=== PATIENT | female | born 1960 | race Caucasian/White ===

== ENCOUNTER → 2017-08-07 10:27 | Outpatient (CLI) | payer BC, SELFPAY ==
[2017-08-07 11:24] LABS: ALB/GLOB Ratio 1.3 RATIO (0.9-2.4); AST(SGOT) 22 U/L (15-37); Alanine Aminotransfer ALT/SGPT 37 U/L (13-56); Albumin, Serum 3.9 g/dL (3.2-5.0); Alkaline Phosphatase 78 U/L (45-117); Anion Gap 5 (5-15); BUN 13 mg/dL (7-18); BUN/Creat Ratio 14.3 RATIO (10-20); Calcium,Total 8.7 mg/dL (8.5-10.1); Chloride 108 mmol/L (98-107); Creatinine, Serum 0.91 mg/dL (0.55-1.02); EST Glomerular Filtration Rate 67 mL/min (>60); Est Glom Filt Rate - Afr Amer 81 mL/min (>60); Globulin 3.1 g/dL (2.2-4.2); Glucose 95 mg/dL (74-106); Potassium 4.2 mmol/L (3.5-5.1); Sodium Level 143 mmol/L (136-145); Thyroid Stim Hormone (TSH) 0.95 uIU/mL (0.358-3.74)
[2017-08-07 11:42] LABS: Vitamin D,25 Hydroxy 38.8 ng/mL (29.95-100.01)
== END ==
PROVIDERS: Family Provider Family Medicine; PCP Family Medicine; Visit Provider Internal Medicine Endocrinology, Diabetes & Metabolism
DX: E03.8 Other specified hypothyroidism (principal); E55.9 Vitamin D deficiency, unspecified
CPT/HCPCS: 36415; 80053; 82306; 84443

== ENCOUNTER → 2018-06-18 06:59 | Outpatient (CLI) | payer BC, SELFPAY ==
[2018-06-18 08:49] LABS: ALB/GLOB Ratio 1.2 RATIO (0.9-2.4); AST(SGOT) 18 U/L (15-37); Alanine Aminotransfer ALT/SGPT 28 U/L (13-56); Albumin, Serum 3.8 g/dL (3.2-5.0); Alkaline Phosphatase 83 U/L (45-117); Anion Gap 8 (5-15); BUN 15 mg/dL (7-18); BUN/Creat Ratio 16.1 RATIO (10-20); Calcium,Total 8.9 mg/dL (8.5-10.1); Chloride 108 mmol/L (98-107); Creatinine, Serum 0.93 mg/dL (0.55-1.02); EST Glomerular Filtration Rate 65 mL/min (>60); Est Glom Filt Rate - Afr Amer 79 mL/min (>60); Globulin 3.2 g/dL (2.2-4.2); Glucose 96 mg/dL (74-106); Potassium 3.9 mmol/L (3.5-5.1); Sodium Level 142 mmol/L (136-145); Thyroid Stim Hormone (TSH) 1.02 uIU/mL (0.358-3.74)
== END ==
PROVIDERS: Family Provider Family Medicine; PCP Family Medicine; Referring Provider Internal Medicine Endocrinology, Diabetes & Metabolism; Visit Provider Internal Medicine Endocrinology, Diabetes & Metabolism
DX: E03.8 Other specified hypothyroidism (principal); E55.9 Vitamin D deficiency, unspecified
CPT/HCPCS: 36415; 80053; 82306; 84443

== ENCOUNTER → 2018-10-28 06:52 | Outpatient (CLI) | payer BC, SELFPAY ==
[2018-10-28 08:28] LABS: T4 Free Direct 1.31 ng/dL (0.76-1.46); Thyroid Stim Hormone (TSH) 0.59 uIU/mL (0.358-3.74)
== END ==
PROVIDERS: Family Provider Family Medicine; PCP Family Medicine
DX: E03.9 Hypothyroidism, unspecified (principal)
CPT/HCPCS: 36415; 84439; 84443

== ENCOUNTER → 2019-12-20 | Outpatient (CLI) | payer BC, SELFPAY | END | disposition home or self-care (01) | PROVIDERS: PCP Family Medicine; Visit Provider Family Medicine Hospice and Palliative Medicine | DX: Z11.59 Encounter for screening for other viral diseases (principal) | CPT/HCPCS: 87635; 94799; U0003 ==

== ENCOUNTER → 2020-02-25 09:15 | Outpatient (CLI) | payer BC, SELFPAY ==
[2020-02-25 10:52] LABS: T4 Free Direct 1.68 ng/dL (0.76-1.46); Thyroid Stim Hormone (TSH) 0.05 uIU/mL (0.358-3.74)
== END ==
PROVIDERS: PCP Family Medicine; Referring Provider Family Medicine; Visit Provider Family Medicine
DX: E03.9 Hypothyroidism, unspecified (principal)
CPT/HCPCS: 36415; 84439; 84443

== ENCOUNTER → 2020-06-02 07:08 | Outpatient (CLI) | payer BC, SELFPAY ==
[2020-06-02 08:09] LABS: ALB/GLOB Ratio 1.3 RATIO (0.9-2.4); AST(SGOT) 17 U/L (15-37); Alanine Aminotransfer ALT/SGPT 32 U/L (13-56); Albumin, Serum 3.8 g/dL (3.2-5.0); Alkaline Phosphatase 77 U/L (45-117); Anion Gap 5 (5-15); BUN 16 mg/dL (7-18); Chloride 106 mmol/L (98-107); Cholesterol 166 mg/dL (200); Creatinine, Serum 0.94 mg/dL (0.55-1.02); EST Glomerular Filtration Rate 64 mL/min (>60); Est Glom Filt Rate - Afr Amer 78 mL/min (>60); Glucose 101 mg/dL (74-106); High Density Lipoprotein 50 mg/dL; Protein, Total 6.8 g/dL (6.4-8.2); Sodium Level 139 mmol/L (136-145); Triglycerides 92 mg/dL; Very Low Density Lipoprotein 18 mg/dL (5-40)
== END ==
PROVIDERS: PCP Family Medicine; Referring Provider Family Medicine; Visit Provider Family Medicine
DX: E03.9 Hypothyroidism, unspecified (principal); E78.2 Mixed hyperlipidemia; G43.909 Migraine, unspecified, not intractable, without status migrainosus
CPT/HCPCS: 36415; 80053; 80061; 84443

== ENCOUNTER → 2020-12-05 06:30 | Outpatient (CLI) | payer BC, SELFPAY ==
[2020-12-05 08:25] LABS: ALB/GLOB Ratio 1.4 RATIO (0.9-2.4); AST(SGOT) 19 U/L (15-37); Alanine Aminotransfer ALT/SGPT 29 U/L (13-56); Alkaline Phosphatase 73 U/L (45-117); Anion Gap 4 (5-15); BUN 16 mg/dL (7-18); BUN/Creat Ratio 16.5 RATIO (10-20); Calcium,Total 9.1 mg/dL (8.5-10.1); Chloride 108 mmol/L (98-107); Cholesterol 174 mg/dL (200); Creatinine, Serum 0.97 mg/dL (0.55-1.02); EST Glomerular Filtration Rate 62 mL/min (>60); Est Glom Filt Rate - Afr Amer 75 mL/min (>60); Globulin 2.8 g/dL (2.2-4.2); Glucose 92 mg/dL (74-106); High Density Lipoprotein 54 mg/dL; Potassium 3.7 mmol/L (3.5-5.1); Protein, Total 6.8 g/dL (6.4-8.2); Sodium Level 139 mmol/L (136-145); T4 Free Direct 1.21 ng/dL (0.76-1.46); Thyroid Stim Hormone (TSH) 1.45 uIU/mL (0.358-3.74); Triglycerides 107 mg/dL; Very Low Density Lipoprotein 21 mg/dL (5-40)
== END ==
PROVIDERS: PCP Family Medicine; Referring Provider Family Medicine; Visit Provider Family Medicine
DX: E03.9 Hypothyroidism, unspecified (principal); G43.909 Migraine, unspecified, not intractable, without status migrainosus; E78.2 Mixed hyperlipidemia
CPT/HCPCS: 36415; 80053; 80061; 84439; 84443

== ENCOUNTER → 2025-01-05 | Outpatient (CLI) | payer MEDICARE, OTHER, SELFPAY ==
--- OUTSIDE RECORDS SUMMARY | 2025-01-05 08:46 | XMS RPT_ITS | CCD ---
Author Organization [facility] Inform ion Partnership [facility] Care Team Providers Care Guest Services Agent Name Role Phone Jai GABRIEL, Haile Castillo Primary Care Provider 1( [phone] HAILE COCHRAN MD Primary Care Physician Haile Cochran MD Primary Care Provider Haile Cochran MD Primary Care Provider HAILE COCHRAN MD Attending Unavailable HAILE COCHRAN MD Primary Care Unavailable SHUBHAM OBANDO MD Attending Unavail able HAILE COCHRAN MD Primary Care Unavailable HAILE COCHRAN Primary Care Unavailable MIEKY EVERETT Attending Unavailable Haile Cochran MD Primary Care Provider KRYSTYNA LOMBARDI JR Attending Unavaila [place] Referring Unavailable HAILE COCHRAN Primary Care Unavailable DEANNA JOHNS Referring Unavailable DEANNA JOHNS Attending Unavailable HAILE COCHRAN Primary Care Unavailable DEANNA JOHNS Referring Unavailable Haile Cochran Attending Unavailable Haile Cochran Primary [facility] [place] Unavailable Allergies Allergy Classification Reported Allergen(s) Allergy Type Date of Onset Reaction(s) Facility (15 sources) Acetaminophen / HYDROcodone; Translations: [HYDROCODONE-ACETA MINOPHEN] Drug Allergy 4 GI Upset [facility] (19 sources) Codeine; Translations: [codeine] Drug Allergy 6 Intolerance, Vomitus (substance) [facility] Work Phone: Medications Current Medications Medication Drug Class(es) Dates Sig (Normalized) Sig (Original) Ascorbic Acid (3 sources) Vitamin C Start: 02-29-2020 Vitamin C qDay, 0 Refill(s) Start Date: 02/29/20 Status: Ordered aspirin 81 mg delayed release oral tablet (16 sources) Platelet Aggregation Inhibitor, Nonsteroidal Anti-inflammatory Drug Start: 12-12-2020 aspirin 81 mg oral delayed release tablet Dose : 81 mg = 1 tab(s), Oral, qDay, # 30 tab(s), 0 Refill(s) Start Date: 12/12/20 Status: Ordered Comment on above: Take 81 mg by mouth once daily. calcium carbonate 750 mg chewable tablet (13 sources) Start: 05-02-2010 calcium Carbonate 300 mg, 750mg, (TUMS) 300 mg (750 mg) chewable tablet take two tablets three times daily as needed 0 05/02/2010 Active Comment on above: take two tablets thr ee times daily as needed Co-Q10 200 mg oral capsule (3 sources) Start: 06-13-2020 Co-Q10 200 mg oral capsule Dose : 200 mg = 1 cap(s), Oral, Daily, 0 Refill(s) Start Date: 06/13/20 Status: Ordered ERGOCALCIFEROL, VITAMIN D2, (VITAMIN D ORAL) (13 sources) ERGOCALCIFEROL, VITAMIN D2, (VITAMIN D ORAL) Take by mouth. Active ERGOCALCIFEROL, VITAMIN D2, (VITAMIN D ORAL) Take by mouth. 0 Active Comment on above: Take by mouth. famotidine 20 mg oral tablet (4 sources) Histamine-2 Receptor Antagonist Start: 12-12-2020 End: 10-04-2021 famotidine 20 mg oral tablet Dose : 20 mg = 1 tab(s), Oral, qDay, # 30 tab(s), 0 Refill(s) Start Date: 12/12/20 Status: Ordered Comment on above: Take 20 mg by mouth once daily. levothyroxine sodium 0.125 mg oral tablet (16 sources) l-Thyroxine Start: 06-14-2021 End: 11-30-2023 levothyroxine 125 mcg (0.125 mg) oral tablet Dose : 125 mcg = 1 tab(s), Oral, qDay, # 90 tab(s), 3 Refill(s), Pharmacy: [facility] ([facility] 166.3, cm, 12/05/22 7:27:00 EDT, Height, kg, 12/05/22 7:27:00 EDT, Dosing Weight Start Date: 12/05/22 Stop Date: 11/30/23 Status: Ordered levothyroxine 17 5 mcg tablet Take 125 mcg by mouth daily before breakfast. Active Comment on above: Take 125 mcg by mout h daily before breakfast. Multivitamin preparation (3 sources) Start: 0 take 1 tablet by mouth once daily Multivitamin Dose = 1 tab(s), Oral, Daily, 0 Refill(s) Start Date: 02/29/20 Status: Ordered MULTIVITAMIN TAB (13 sources) Start: 6 MULTIVITAMIN TAB Take one(1) tablet daily. 0 09/24/2005 Active Comment on above: Take one(1) tablet d aily. Hamilton-3 Fatty Acids-Vitamin E 1,000 mg cap (8 sources) Hamilton-3 Fatty Acids-Vitamin E 1,000 mg cap Take 1 capsule by mouth. Active Hamilton-3 Fatty Ac ids-Vitamin E 1,000 mg cap Take 1 capsule by mouth. 0 Active Comment on above: Take 1 capsule by mo uth. perflutren lipid microspheres 1.3 mL in NaCl (PF) 0.9% 10 mL injection (DEFINITY) (3 sources) Start: 3 End: 4 perflutren lipid microspheres 1.3 mL in NaCl (PF) 0.9% 10 mL injection (DEFINITY) simvastatin 40 mg oral tablet (16 sources) HMG-CoA Reductase Inhibitor Start: 1 take 1 tablet by mouth once daily in the evening simvastatin (ZOCOR) 40 mg tablet TAKE 1 TABLET BY MOUTH EVERY DAY IN THE EVENING 30 tablet 11 10/12/2020 Active Comment on above: TAKE 1 TABLET BY BETHEL EVERY DAY IN THE EVENING 125 ml sodium chloride 9 mg/ml prefilled syringe (3 sources) Start: 3 End: 4 sodium chloride 0.9 % (flush) 10 mL (BD POSIFLUSH) ubidecarenone 100 mg oral capsule (13 sources) coenzyme Q10 (COENZYME Q-10) 100 mg cap capsule Take 100 mg by mouth once daily. Active Comment on above: Take 100 mg by mouth once daily. Vitamin D3 (2 sources) Start: 1 take 1 dose by mouth once daily Vitamin D3 Dose : 1,000 Int unit =, Oral, Daily, 0 Refill(s) Start Date: 06/13/20 Status: Ordered vitamin e 268 mg oral capsule (13 sources) take 1 capsule by mouth once daily alpha tocopheryl acetate (VITAMIN E) 400 unit capsule Take 400 Units by mouth once daily. Active take 1 capsule by mouth once lisa ly alpha tocopheryl acetate (VITAMIN E) 400 unit capsule Take 400 Units by mouth once daily. 0 Active Comment on above: Take 400 Units by [facility] once daily. Completed/Discontinued Medications Medication Drug Class(es) Dates Sig (Normalized) Sig (Original) nebivolol 2.5 mg oral tablet (5 sources) Start: 06-06-2021 take 1 tablet by mouth once daily nebivolol (BYSTOLIC) 2.5 mg tablet Take 1 tablet by mouth once daily. 30 tablet 3 06/06/2021 Active Comment on above: Take 1 tablet by [facility] once daily. Hamilton-3 Fatty Acids-Vitamin E (FISH OIL) 1,000 mg cap (5 sources) Hamilton-3 Fatty Acids-Vitamin E (FISH OIL) 1,000 mg cap Take 1 capsule by mouth. 0 Active Comment on above: Take 1 capsule by [facility]. rizatriptan 10 mg oral tablet (1 source) Serotonin-1b and Serotonin-1d Receptor Agonist Start: 10-13-2005 End: 10-04-2021 MAXALT 10 MG TAB 1 tab prn 0 10/13/2005 10/04/2021 Discontinued Comment on above: 1 tab prn Problems Active Problems Problem Classification Problem Date Documented Da te Episodic/Chronic Acute myocardial infarction (9 sources) Acute myocardial infarction; Translations: [Acute myocardial infarction, unspecified] Onset: 10-23-2010 09-30-2022 Chronic Coronary atherosclerosis and other heart disease (20 sources) Coronary atherosclerosis; Translations: [Atherosclerotic heart disease of [place] coronary artery with unspecified angina pectoris] Onset: 09-07-2019 Resolved: 09-30-2022 Chronic Disorders of lipid metabolism (20 sources) Mixed hyperlipidemia; Translations: [Mixed hyperlipidemia] Onset: 10-02-2021 Chronic Essential hypertension (5 sources) Benign essential hypertension; Translations: [Essential (primary) hypertension] Onset: 11-10-2011 Chronic Headache; including migraine (20 sources) Migraine with aura; Translations: [Migraine with aura, not intractable, without status migrainosus] Onset: 05-25-1999 11-10-2011 Chronic Heart valve disorders (14 sources) Heart murmur; Translations: [Cardiac murmur, unspecified] Episodic Immunizations and screening for infectious disease (12 sources) Patient encounter status; Translations: [Encounter for screening for human papillomavirus (HPV)] Episodic Menopausal disorders (3 sources) Disorder associated with menstruation AND/OR menopause; Translations: [Unspecified menopausal and perimenopausal disorder] Onset: 12-09-2024 12-09-2024 Chronic Nonmalignant breast conditions (2 sources) Breast finding ; Translations: [Dense breast tissue] 12-03-2023 Episodic Nonspecific chest pain (2 sources) Chest pain; Translations: [Other chest pain] Onset: 05-15-2023 Episodic Open wounds of extremities (1 source) Laceration without foreign body of unspecified finger without damage to nail, initial encounter; Translations: [Laceration without foreign body of unspecified finger without damage to nail, initial encounter] Onset: 02-02-2024 Episodic Other screening for suspected conditions (not mental disorders or infectious disease) (2 sources) Encounter for screening mammogram for malignant neoplasm of breast; Translations: [Encounter for screening for osteoporosis] Onset: 12-09-2024 Episodic Thyroid disorders (20 sources) Non-toxic uninodular goiter; Translations: [Nontoxic single thyroid nodule] Onset: 05-25-1999 03-27-2010 Chronic Unclassified (4 sources) Patient encounter status 12-05-2022 Unclassified (1 source) Dense breast tissue; Translations: [Dense breast tissue] Onset: 12-09-2024 Past or Other Problems Problem Classification Problem Date Documented Date Episodic/Chronic Other non-epithelial cancer of skin (9 sources) History of malignant basal cell neoplasm of skin; Translations: [Personal history of other malignant neoplasm of skin] Onset: 05-25-2012 09-30-2022 Episodic Residual codes; unclassified (14 sources) History of cardiac catheterization; Translations: [Other specified postprocedural states] Onset: 11-08-2010 Episodic Residual codes; unclassified (1 source) Other specified postprocedural states; Translations: [History of left heart catheterization] Onset: 09-05-2019 Episodic Screening and history of mental health and substance abuse codes (20 sources) Ex-smoker; Translations: [Personal history of nicotine dependence] Onset: 09-28-2020 Episodic Results Test Name Value Interpretation Reference Range Facility [facility] 12-09-2024 CNOV Office Visit (OBGYWM ) SADIE VELASCO ([id number]) 1960 F NFR Date Time Provider Department 12/09/24 3:00 PM DEANNA JOHNS OBGYWM During your visit today, we recorded the following information about you: Blood pressure Weight Height 118/66 71.4 kg 1.634 m Deanna Johns APRN.BLUNGER 12/09/2024 3:10 PM Signed 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 Postmenopausal: Yes since age 52 HRT use: No. Last Pap: 12/02/2021 normal HPV: 11/27/2021 negative History of abnormal pap: No Last mammogram: 2024 today History of abnormal mammogram: No Sexually active: Yes OB History Gravida1 Para1 Term0 Preterm0 AB0 Living1 SAB0 IAB0 Ectopic0 Multiple0 Live Births0 Comment: 1 vaginal delivery [employer] History LMP: 01/17/2013, Postmenopausal Age at Menarche: Age at First : Age at Menopause: [employer] History Comments: Sexual Activity: Yes; Male Contraception: Vasectomy PAST MEDICAL HISTORY Diagnosis Date Acute [place] ([place]) 10/2010 Heart murmur History of left heart catheterization 11/08/2010 Patient has atherosclerosis. A long mid LAD about 50% stenosis. RCA and circumflex are noted to be free of disease. Hx of skin cancer, basal cell 2012 Hypothyroidism Migraines Mixed hyperlipidemia Toxic goiter 1999 PAST SURGICAL HISTORY Procedure Laterality Date COLONOSCOPY FLX DX W/COLLJ SPEC WHEN PFRMD 06/20/2013 Colonoscopy EGD 02/16/05 w/ bx PAST SURGICAL HISTORY OF radio active iodine for graves disease PAST SURGICAL HISTORY OF 05/2012 basil cell removal from nose THYROIDECTOMY TOTAL/COMPLETE 04/24/10 [facility] FAMILY HISTORY Problem Relation Age of Onset Hypertension Mother Alzheimer's Disease Mother Mild Alzheimer's Stroke Mother Hypertension Father Heart Failure Maternal Grandfather Heart Paternal Uncle SOCIAL HISTORY Social History Tobacco Use Smoking status: Former Current packs/day: 0.00 Average packs/day: 0.5 packs/day for 3.0 years (1.5 ttl pk-yrs) Types: Cigarettes Start date: 1977 Quit date: 1980 Years since quittin.5 Passive exposure: Never Smokeless tobacco: Never Vaping Use Vaping status: Never Used Substance Use Topics Alcohol use: No Drug use: No REVIEW OF SYSTEMS Abdomen: No abdominal pain, nausea, vomiting, diarrhea, or constipation. No bloating, early satiety, indigestion, or increased flatulence. Bladder: No dysuria, gross hematuria, urinary frequency, urinary urgency, or incontinence Breast: No breast lumps, nipple d/c, overlying skin changes, redness or skin retraction Allergies and current medication updated:Yes SENSITIVE EXAM: The sensitive examination was discussed with the Patient or Patient's Authorized It Infrastructure Specialist. As applicable, any other physician, advance practice provider, medical student, or other health professional student that will be observing or involved in the sensitive examination for educational or training purposes was discussed with the Patient or Authorized It Infrastructure Specialist. The Patient or Authorized It Infrastructure Specialist has agreed to proceed with the sensitive examination. (Sensitive examination includes inspection and/or palpation of the breasts, pelvis, prostate and anorectal regions). EXAM: BP 118/66 Ht 5' 4.331 (1.63m) Wt 157 lb 6.4 oz (71.4kg) LMP 01/17/2013 BMI 26.74 kg/(m2). GENERAL: pleasant, female in no apparent distress HEENT: Normocephalic, atraumatic, mucus membranes moist, and no lesions DERMATOLOGY: Normal, without lesions, non-icteric, and non-hirsute BREAST: soft, non-tender, symmetric, no dominant mass, normal nipple-areolar complex, no lymphadenopathy, and no nipple discharge CHEST: Normal inspiratory effort ABDOMEN: soft, non-tender, and no masses PELVIC: external genitalia normal, normal Bartholin's glands, urethra, [place]'s glands, no vulvar lesions, no cervical lesions, physiologic discharge present, normal appearing perineal body and perianal region BIMANUAL: uterus normal size, shape and consistency, no adnexal masses, and non-tender RECTOVAGINAL: deferred. NEURO: alert and oriented x3,exam grossly non-focal EXTREMITIES: normal ASSESSMENT/PLAN: 1) Health maintenance: Pap/HPV screening no longer needed Mammogram ordered Mammogram up to date Nutrition, exercise and routine health maintenance exams reviewed. Colon cancer screening: declined BMD: ordered 2) Follow up one year or sooner as needed Deanna Johns APRN.CNP Referring Provider: DEANNA JOHNS [[id number]] Allergies As of Date: 12/09/2024 Noted Allergy Reaction HYDROCODONE-ACETAMINO PHEN 06/20/2013 8 - GI Upset CODEINE 09/24/2005 5 - Intolerance Date Reviewed: 12/09/2024 Reviewed by: Deanna Johns APRN.BLUNGER - Fully Assessed Reason for Visit: [facility] [[id number]] Primary Visit Diagnosis:Encounter (more content not included)... Normal [facility] BRIANDA SCREENING W TOMOon 12-09 BRIANDA SCREENING W SHREYA * * *Final Report* * * DATE OF EXAM: Dec 09 2024 2:19PM [facility] [id number] - BRIANDA SCREENING W SHREYA / PROCEDURE REASON: multiple diagnoses * * * * Physician Interpretation * * * * RESULT: [place] [address] #[id number] - BRIANDA SCREENING W SHREYA HISTORY: 64 year-old patient presents for screening. Patient is asymptomatic in both breasts. Patient states no personal history of breast cancer. COMPARISON STUDIES: The present examination has been compared to prior imaging studies dated 11/18/2019 (mammogram), 11/19/2020 (mammogram), 11/21/2021 (mammogram), 11/24/2022 (mammogram) and 11/27/2023 (mammogram). MAMMOGRAM TECHNIQUE: The study was acquired using full field digital technology and interpreted from soft copy. Digital Breast Tomosynthesis (DBT) images were obtained and used to assist in the interpretation of this examination. MAMMOGRAM FINDINGS: There are scattered areas of fibroglandular density. No suspicious masses, calcifications or other abnormalities are seen in either breast. There are no significant interval changes. IMPRESSION: There is no mammographic evidence of malignancy in either breast. Routine screening mammogram is recommended. Annual mammogram will be due in 1 year. BI-RADS Category 1: Negative RISK: Based on the Tyrer-Cuzick (TC) risk assessment model, this patient has a 6.3% lifetime risk of developing breast cancer, meaning they are at average risk for developing breast cancer. However, this is only an estimate based on available history provided on the patient's questionnaire. We encourage all patients to talk with their providers about these results, further recommendations for managing breast health, and appropriate supplemental screening options if the patient has dense breast tissue. Interpreting Radiologist: Delphine Pierre M.D. Electronically signed on: 12/12/2024 Tool Pusher: GALLO Transcribe Date/Time: Dec 09 2024 2:12P Dictated by: DELPHINE PIERRE MD This examination was interpreted and the report reviewed and electronically signed by: DELPHINE PIERRE MD on Dec 12 2024 8:43AM EST [id number] Normal [facility] XR HAND 3+ VIEWS LEFTon 09 XR HAND 3+ VIEWS LEFT XR HAND 3+ VIEWS L EFT AP, lateral and oblique views of the left hand. COMPARISON: None available in PACS. FINDINGS: No acute fracture or dislocation is identified. Joint spaces are preserved. Mineralization is within normal limits. No destructive osseous lesions are identified. There are no soft tissue calcifications. There are no radiopaque foreign bodies. IMPRESSION: 1. No acute osseous abnormality. Normal [facility] MG Breast Screeningon 2023 IMPRESSION: NEGATIVE There is no mammographic evidence of malignancy. A 1 year screening mammogram is recommended. Delphine Pierre M.D. cp/penrad:11/27/2023 07:25:29 Steward/Stewardess Wine(s): Glenna Gonzalez [facility] [place] letter sent: Normal over 40 Mammogram BI-RADS: 1 Negative Multiple national specialty organizations have released breast cancer screening guidelines for women at average risk for developing breast cancer - guidelines that are based on both evidence and opinion, yet differ on when to start and how often to screen for breast cancer. With representation from Breast Imaging, Internal Medicine, Women's Health, Family Medicine, and Medical/Surgical Oncology, the [facility] has carefully reviewed the data and reached the following consensus: 1) All women should engage in shared decision-making with their providers to decide when to start and how often to screen; 2) All women should have the opportunity to start screening mammography at age 40; 3) For women ages 45-55, we recommend annual screening mammograms; 4) For women ages 55 and over, we support both the transition from an annual to a biennial interval if this aligns more with patient's values and preferences, or continuation with annual screening; 5) All women should discuss with their providers when to stop screening mammograms. Tool Pusher: Darlene Transcribe Date/Time: Nov 27 2023 6:55A Dictated by: DELPHINE PIERRE MD This examination was interpreted and the report reviewed and electronically signed by: DELPHINE PIERRE MD on Nov 27 2023 7:25AM [facility] DIVISION OF RADIOLOGY * * *Final Report* * * DATE OF EXAM: Nov 27 2023 7:03AM [facility] 0581 - [facility] SCREENING / PROCEDURE REASON: Encounter for screening mammogram for breast cancer * * * * Physician Interpretation * * * * RESULT: #[id number] - BRIANDA SCREENING BILATERAL DIGITAL SCREENING MAMMOGRAM WITH CAD: 11/27/2023 HISTORY: Encounter For Screening Mammogram For Breast Cancer / Screening Mammogram-Patient reports NO symptoms. /priors available for comparison. RESULT: TECHNIQUE: The study was acquired using full field digital technology and interpreted from soft copy. Current study was also evaluated with a Computer Aided Detection (CAD). Comparison is made to exams dated: 11/24/2022 mammogram, 11/21/2021 mammogram, 11/19/2020 mammogram, and 11/18/2019 mammogram - [facility]. There are scattered areas of fibroglandular density. No significant masses, calcifications, or other findings are seen in either breast. There has been no significant interval change. DIVISION OF RADIOLOGY Provider, [facility] - 11/27/2023 * * *Final Report* * * DATE OF EXAM: Nov 27 2023 7:03AM [facility] 0581 - [facility] SCREENING / PROCEDURE REASON: Encounter for screening mammogram for breast cancer * * * * Physician Interpretation * * * * RESULT: #[id number] - BRIANDA SCREENING BILATERAL DIGITAL SCREENING MAMMOGRAM WITH CAD: 11/27/2023 HISTORY: Encounter For Screening Mammogram For Breast Cancer / Screening Mammogram-Patient reports NO symptoms. /priors available for comparison. RESULT: TECHNIQUE: The study was acquired using full field digital technology and interpreted from soft copy. Current study was also evaluated with a Computer Aided Detection (CAD). Comparison is made to exams dated: 11/24/2022 mammogram, 11/21/2021 mammogram, 11/19/2020 mammogram, and 11/18/2019 mammogram - [facility]. There are scattered areas of fibroglandular density. No significant masses, calcifications, or other findings are seen in either breast. There has been no significant interval change. IMPRESSION IMPRESSION: NEGATIVE There is no mammographic evidence of malignancy. A 1 year screening mammogram is recommended. Delphine Pierre M.D., cp/darlene:11/27/2023 07:25:29 Steward/Stewardess Wine(s): Glenna Gonzalez [facility] letter sent: Normal over 40 Mammogram BI-RADS: 1 Negative Multiple national specialty organizations have released breast cancer screening guidelines for women at average risk for developing breast cancer - guidelines that are based on both evidence and opinion, yet differ on when to start and how often to screen for breast cancer. With representation from Breast Imaging, Internal Medicine, Women's Health, Family Medicine, and Medical/Surgical Oncology, the [facility] has carefully reviewed the data and reached the following consensus: 1) All women should engage in shared decision-making with their providers to decide when to start and how often to screen; 2) All women should have the opportunity to start screening mammography at age 40; 3) For women ages 45-55, we recommend annual screening mammograms; 4) For women ages 55 and over, we support both the transition from an annual to a biennial interval if this aligns more with patient's values and preferences, or continuation with annual screening; 5) All women should discuss with their providers when to stop screening mammograms. Tool Pusher: Darlene Transcribe Date/Time: Nov 27 2023 6:55A Dictated by: DELPHINE PIERRE MD This examination was interpreted and the report reviewed and electronically signed by: DELPHINE PIERRE MD on Nov 27 2023 7:25AM [facility] Radiology Study observation (narrative) [facility] MG Breast ScreeningOrdered B y: [facility] Provider on 11-27-2023 [facility] CNOVon 05-21-2023 CNOV Office Visit (AARON ) SADIE VELASCO ([id number]) 1960 F NFR Date Time Provider Department 05/21/23 11:00 AM MIKEY EVERETT During your visit today, we recorded the following information about you: Pulse Blood pressure Weight Height 68/minute 116/82 73.5 kg 1.626 m Mikey Everett DO 05/22/2023 3:23 AM Signed Referring Provider: No ref. provider found Date: May 21, 2023 Chief Complaint: Established Patient Follow-Up (Former patient, Chest pain. ) HISTORY OF PRESENT ILLNESS: Sadie Velasco is a 62 year old female who presents for Established Patient Follow-Up (Former patient, Chest pain. ). ALLERGIES Allergen Reactions Hydrocodone-Acetami* GI Upset Codeine Intolerance PAST MEDICAL HISTORY: PAST MEDICAL HISTORY Diagnosis Date Acute [place] (H[place]) 10/2010 Coronary artery disease Heart murmur History of left heart catheterization 11/08/2010 Patient has atherosclerosis. A long mid LAD about 50% stenosis. RCA and circumflex are noted to be free of disease. Hx of skin cancer, basal cell 2012 Hypothyroidism Migraines Mixed hyperlipidemia Toxic goiter 1999 PAST SURGICAL HISTORY Procedure Laterality Date COLONOSCOPY FLX DX W/COLLJ SPEC WHEN PFRMD 06/20/2013 Colonoscopy EGD 02/16/05 w/ bx PAST SURGICAL HISTORY OF radio active iodine for graves disease PAST SURGICAL HISTORY OF 05/2012 basil cell removal from nose THYROIDECTOMY TOTAL/COMPLETE 04/24/10 [facility] FAMILY HISTORY Problem Relation Age of Onset Hypertension Mother Alzheimer's Disease Mother Mild Alzheimer's Stroke Mother Hypertension Father Heart Failure Maternal Grandfather Heart Paternal Uncle SOCIAL HISTORY: Tobacco Use: .5 packs/day, for 3 years. Quit 05/25/1980. 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 alpha tocopheryl acetate (VITAMIN E) 400 unit capsule Take 400 Units by mouth once daily. levothyroxine 175 mcg tablet Take 125 mcg by mouth daily before breakfast. Hamilton-3 Fatty Acids-Vitamin E 1,000 mg cap Take 1 capsule by mouth. ERGOCALCIFEROL, VITAMIN D2, (VITAMIN D ORAL) Take by mouth. aspirin, enteric coated 81 mg EC tablet Take 81 mg by mouth once daily. calcium Carbonate 300 mg, 750mg, (TUMS) 300 mg (750 mg) chewable tablet take two tablets three times daily as needed MULTIVITAMIN TAB Take one(1) tablet daily. Current Facility-Administered Medications Medication Dose Route Frequency perflutren lipid microspheres 1.3 mL in NaCl (PF) 0.9% 10 mL injection (DEFINITY) INTRAVENOUS DIRECTED PRN sodium chloride 0.9 % (flush) 10 mL (BD POSIFLUSH) 10 mL INTRAVENOUS DIRECTED PRN I have personally reviewed the patients past medical history including social, family, surgical, diagnostics, and medications. REVIEW OF SYSTEMS: Review of Systems Constitutional: Negative for chills and fatigue. Respiratory: Negative for chest tightness and shortness of breath. Cardiovascular: Negative for chest pain, palpitations and leg swelling. Neurological: Negative for dizziness, syncope, weakness and light-headedness. Hematological: Bruises/bleeds easily. Psychiatric/Behaviora l: Negative for confusion and hallucinations. Vitals: BP 116/82 (BP Site: Left Arm, BP Position: Sitting, BP Cuff Size: Regular Adult) Pulse 68 Ht 162.6 cm (5' 4) Wt 73.5 kg (162 lb 1.3 oz) LMP 01/17/2013 BMI 27.82 kg/m? PHYSICAL EXAMINATION: BP 116/82 (BP Site: Left Arm, BP Position: Sitting, BP Cuff Size: Regular Adult) Pulse 68 Ht 162.6 cm (5' 4) Wt 73.5 kg (162 lb 1.3 oz) LMP 01/17/2013 BMI 27.82 kg/m? Last 3 Encounter BP Readings: Date: BP: 11/24/2022 110/60 10/13/2022 140/80 11/21/2021 110/80 Last 3 Encounter Pulse Readings: Date: Pulse: 10/13/2022 57 10/04/2021 55 09/28/2020 57 Last 3 Encounter Wt Readings: Date: Wt: 11/24/2022 73.5 kg (162 lb) 10/13/2022 74.4 kg (164 lb) 11/21/2021 74.8 kg (165 lb) Physical Exam Vitals reviewed. Constitutional: General: She is not in acute distress. Appearance: Normal appearance. HENT: Head: Normocephalic. Right Ear: External ear normal. Left Ear: External ear normal. Nose: Nose normal. Mouth/Throat: Mouth: Mucous membranes are moist. Eyes: Extraocular Movements: Extraocular movements intact. Cardiovascular: Rate and Rhythm: Normal rate and regular rhythm. Pulses: Normal pulses. Carotid pulses are 2+ on the right side and 2+ on the left side. Radial pulses are 2+ on the right side and 2+ on the left side. Posterior (more content not included)... Normal [facility] ECG COMPLETEon 05-21-2023 ECG COMPLETE Ventricular Rate : 6 8 BPM Atrial Rate : 68 BPM P-R Interval : 176 ms QRS Duration : 80 ms Q-T Interval : 394 ms QTC Calculation(Bazett) : 418 ms Calculated P Polo : 61 degrees Calculated R Polo : 25 degrees Calculated T Polo : 48 degrees Normal sinus rhythm Possible Anterior infarct , age undetermined Abnormal ECG No previous ECGs available Confirmed by MIKEY EVERETT DO ([id number]) on 05/24/2023 3:27:35 AM NAME : SADIE VELASCO PID : [id number] : 1960 Gender : Female Race : ORD : [id number] Procedure Date : May 21 2023 10:59:13 Edit Date : May 24 2023 03:27:38 Diagnosis: Normal sinus rhythm Possible Anterior infarct , age undetermined Abnormal ECG No previous ECGs available Confirmed by MIKEY EVERETT DO ([id number]) on 05/24/2023 3:27:35 AM Test Reason : HCS Location : 2 : [place] Overread By : MIKEY EVERETT DO Edited By : MIKEY EVERETT DO Referred By : , Acquired by : [id number], [facility] .Auto Diffon 05-15-2023 Basophil, Absolute 0.1 10 3/mcL Normal 0.0-0.2 [facility] ([place]) Comment on above: Performed By: #### G FR, FT4, TSH, LIPID, CMP #### [address] [address] Basophils/100 WBC (Bld) 0.9 % Normal 0.0-2.5 [facility] ([place]) Comment on above: Performed By: #### G FR, FT4, TSH, LIPID, CMP #### [address] [address] Eosinophil, Absolute 0.0 10 3/mcL Normal 0.0-0.4 [facility] ([place]) Comment on above: Performed By: #### G FR, FT4, TSH, LIPID, CMP #### [address] [address] Eosinophils/100 WBC (Bld) 0.7 % Normal 0.0-7.0 [facility] ([place]) Comment on above: Performed By: #### G FR, FT4, TSH, LIPID, CMP #### [address] [address] Lymphocyte, Absolute 1.6 10 3/mcL Normal 0.8-3.9 [facility] ([place]) Comment on above: Performed By: #### G FR, FT4, TSH, LIPID, CMP #### [address] [address] Lymphocytes/100 WBC (Bld) 27.5 % Normal 10.0-50.0 [facility] ([place]) Comment on above: Performed By: #### G FR, FT4, TSH, LIPID, CMP #### [address] [address] Monocyte, Absolute 0.4 10 3/mcL Normal 0.2-1.0 [facility] ([place]) Comment on above: Performed By: #### G FR, FT4, TSH, LIPID, CMP #### [address] [address] Monocytes/100 WBC (Bld) 7.8 % Normal 1.7-13.0 [facility] ([place]) Comment on above: Performed By: #### G FR, FT4, TSH, LIPID, CMP #### [address] [address] Neutrophils/100 WBC (Bld) 63.1 % Normal 37.0-80.0 [facility] ([place]) Comment on above: Performed By: #### G FR, FT4, TSH, LIPID, CMP #### [address] [address] .GFRon 05-15-2023 GFR 66 ml/min/1.73sqm Normal [facility] ([place]) Comment on above: Result Comment: GFR Population mean for , Non- Americans Ages 20-29 = 116 mL/min/1.73 sq.m. Ages 30-39 = 107 mL/min/1.73 sq.m. Ages 40-49 = 99 mL/min/1.73 sq.m. Ages 50-59 = 93 mL/min/1.73 sq.m. Ages 60-69 = 85 mL/min/1.73 sq.m. Ages 70+ = 75 mL/min/1.73 sq.m. Chronic Kidney Disease: Less than 60 mL/min/1.73 square meters End Stage Renal Disease: Less than 15 mL/min/1.73 square meters Performed By: #### M DW, GFR, ANEU, BMP, TROPHS, CBC, ADIFF #### [address] [address] GFR Non- 55 ml/min/1.73sqm Normal [facility] ([place]) Comment on above: Result Comment: GFR Population mean for , Non- Americans Ages 20-29 = 116 mL/min/1.73 sq.m. Ages 30-39 = 107 mL/min/1.73 sq.m. Ages 40-49 = 99 mL/min/1.73 sq.m. Ages 50-59 = 93 mL/min/1.73 sq.m. Ages 60-69 = 85 mL/min/1.73 sq.m. Ages 70+ = 75 mL/min/1.73 sq.m. Chronic Kidney Disease: Less than 60 mL/min/1.73 square meters End Stage Renal Disease: Less than 15 mL/min/1.73 square meters Performed By: #### M DW, GFR, ANEU, BMP, TROPHS, CBC, ADIFF #### [address] [address] .MDWon 05-15-2023 Monocyte Distribution Width 18.02 Normal 0.00-20.00 [facility] ([place]) Comment on above: Result Comment: For ED adult patients suspected of sepsis, MDW<=20.0 does not rule out sepsis or risk of sepsis Performed By: #### G FR, FT4, TSH, LIPID, CMP #### [address] [address] .NEUABSon 05-15-2023 Neutrophil, Absolute 3.6 10 3/mcL Normal 2.9-6.2 [facility] ([place]) Comment on above: Performed By: #### G FR, FT4, TSH, LIPID, CMP #### [address] [address] BMPon 05-15-2023 BUN/Creatinine Ratio 15 ratio Normal 7-27 [facility] ([place]) Comment on above: Performed By: #### M DW, GFR, ANEU, BMP, TROPHS, CBC, ADIFF #### [address] [address] Calcium [Mass/Vol] 10.4 mg/dL High 8.4-10.2 [facility] ([place]) Comment on above: Performed By: #### M DW, GFR, ANEU, BMP, TROPHS, CBC, ADIFF #### [address] [address] Chloride [Moles/Vol] 106 mmol/L Normal 98-107 [facility] ([place]) Comment on above: Performed By: #### M DW, GFR, ANEU, BMP, TROPHS, CBC, ADIFF #### [address] [address] CO2 [Moles/Vol] 29 mmol/L Normal 23-31 [facility] ([place]) Comment on above: Performed By: #### M DW, GFR, ANEU, BMP, TROPHS, CBC, ADIFF #### [address] [address] Creatinine [Mass/Vol] 1.02 mg/dL Normal 0.55-1.02 [facility] ([place]) Comment on above: Performed By: #### M DW, GFR, ANEU, BMP, TROPHS, CBC, ADIFF #### [address] [address] Electrolyte Balance 8.0 mEq/L Normal 4.0-15.0 [facility] ([place]) Comment on above: Performed By: #### M DW, GFR, ANEU, BMP, TROPHS, CBC, ADIFF #### [address] [address] Glucose [Mass/Vol] 118 mg/dL High 80-115 [facility] ([place]) Comment on above: Performed By: #### M DW, GFR, ANEU, BMP, TROPHS, CBC, ADIFF #### [address] [address] Potassium [Moles/Vol] 4.1 mmol/L Normal 3.5-5.1 [facility] ([place]) Comment on above: Performed By: #### M DW, GFR, ANEU, BMP, TROPHS, CBC, ADIFF #### [address] [address] Sodium [Moles/Vol] 143 mmol/L Normal 136-145 [facility] ([place]) Comment on above: Performed By: #### M DW, GFR, ANEU, BMP, TROPHS, CBC, ADIFF #### [address] [address] Urea nitrogen [Mass/Vol] 15 mg/dL Normal 7-18 [facility] ([place]) Comment on above: Performed By: #### M DW, GFR, ANEU, BMP, TROPHS, CBC, ADIFF #### [address] [address] CBCon 05-15-2023 Erythrocyte distribution width (RBC) [Ratio] 12.7 % Normal 11.5-14.5 [facility] ([place]) Comment on above: Performed By: #### M DW, GFR, ANEU, BMP, TROPHS, CBC, ADIFF #### [address] [address] Hematocrit (Bld) [Volume fraction] 43.6 % Normal 37.0-47.0 [facility] ([place] Comment on above: Performed By: #### M DW, GFR, ANEU, BMP, TROPHS, CBC, ADIFF #### [address] [address] Hgb 14.9 G/dL Normal 12.0-16.0 [facility] ([place]) Comment on above: Performed By: #### M DW, GFR, ANEU, BMP, TROPHS, CBC, ADIFF #### [address] [address] MCH (RBC) [Entitic mass] 30.1 pg Normal 27.0-31.2 [facility] ([place] Comment on above: Performed By: #### M DW, GFR, ANEU, BMP, TROPHS, CBC, ADIFF #### [address] [address] MCHC 34.2 G/dL Normal 33.0-37.0 [facility] ([place] Comment on above: Performed By: #### M DW, GFR, ANEU, BMP, TROPHS, CBC, ADIFF #### [address] [address] MCV (RBC) [Entitic vol] 88.0 fL Normal 80.0-94.0 [facility] ([place] Comment on above: Performed By: #### M DW, GFR, ANEU, BMP, TROPHS, CBC, ADIFF #### [address] [address] Platelet 251 10 3/mcL Normal 130-400 [facility] ([place]) Comment on above: Performed By: #### M DW, GFR, ANEU, BMP, TROPHS, CBC, ADIFF #### [address] [address] Platelet mean volume (Bld) [Entitic vol] 7.3 fL Low 7.4-10.4 [facility] ([place]) Comment on above: Performed By: #### M DW, GFR, ANEU, BMP, TROPHS, CBC, ADIFF #### [address] [address] RBC 4.96 10 6/mcL Normal 4.20-5.40 [facility] ([place]) Comment on above: Performed By: #### M DW, GFR, ANEU, BMP, TROPHS, CBC, ADIFF #### Roxanne [address] [address] WBC 5.7 10 3/mcL Normal 4.6-10.8 [facility] ([place]) Comment on above: Performed By: #### M DW, GFR, ANEU, BMP, TROPHS, CBC, ADIFF #### [address] [address] LABORATORYOrdered By: SYSTEM SYSTEM on 05-15-2023 Troponin I.cardiac DL <= 0.01 ng/mL [Mass/Vol] 6.2 ng/L Normal 0.0 - 51.4 ng/L AO ADM SS Basophil, Absolute 0.1 103/mcL Normal 0.0 - 0.2 10^3/mcL AO Workflow SS Basophils/100 WBC (Bld) 0.9 % Normal 0.0 - 2.5 % AO Workflow SS Calcium [Mass/Vol] 10.4 mg/dL High 8.4 - 10. 2 mg/dL AO ADM SS Chloride [Moles/Vol] 106 mmol/L Normal 98 - 10 7 mmol/L AO ADM SS CO2 [Moles/Vol] 29 mmol/L Normal 23 - 31 mmol/L AO ADM SS Creatinine [Mass/Vol] 1.02 mg/dL Normal 0.55 - 1.02 mg/dL AO ADM SS Electrolyte Balance 8.0 mEq/L Normal 4.0 - 15 .0 mEq/L AO ADM SS Eosinophil, Absolute 0.0 103/mcL Normal 0.0 - 0 .4 10^3/mcL AO Workflow SS Eosinophils/100 WBC (Bld) 0.7 % Normal 0.0 - 7.0 % AO Workflow SS Erythrocyte distribution width (RBC) [Ratio] 12.7 % Normal 11.5 - 14.5 % AO Workflow SS GFR/1.73 sq M.predicted among blacks MDRD (S/P/Bld) [Vol rate/Area] 66 ml/min/1.73sqm Invalid Interpretation Code AO Chemistry S Comment on above: Interpretive Data: GFR Population mean for , Non- Americans Ages 20-29 = 116 mL/min/1.73 sq.m. Ages 30-39 = 107 mL/min/1.73 sq.m. Ages 40-49 = 99 mL/min/1.73 sq.m. Ages 50-59 = 93 mL/min/1.73 sq.m. Ages 60-69 = 85 mL/min/1.73 sq.m. Ages 70+ = 75 mL/min/1.73 sq.m. Chronic Kidney Disease: Less than 60 mL/min/1.73 square meters End Stage Renal Disease: Less than 15 mL/min/1.73 square meters GFR/1.73 sq M.predicted among non-blacks MDRD (S/P/Bld) [Vol rate/Area] 55 ml/min/1.73sqm Invalid Interpretation Code AO Chemistry S Comment on above: Interpretive Data: GFR Population mean for , Non- Americans Ages 20-29 = 116 mL/min/1.73 sq.m. Ages 30-39 = 107 mL/min/1.73 sq.m. Ages 40-49 = 99 mL/min/1.73 sq.m. Ages 50-59 = 93 mL/min/1.73 sq.m. Ages 60-69 = 85 mL/min/1.73 sq.m. Ages 70+ = 75 mL/min/1.73 sq.m. Chronic Kidney Disease: Less than 60 mL/min/1.73 square meters End Stage Renal Disease: Less than 15 mL/min/1.73 square meters Glucose [Mass/Vol] 118 mg/dL High 80 - 115 mg/dL AO ADM SS Hematocrit (Bld) [Volume fraction] 43.6 % Normal 37.0 - 47.0 % AO Workflow SS Hemoglobin (Bld) [Mass/Vol] 14.9 G/dL Normal 12.0 - 16.0 G/dL AO Workflow SS Lymphocyte, Absolute 1.6 103/mcL Normal 0.8 - 3 .9 10^3/mcL AO Workflow SS Lymphocytes/100 WBC (Bld) 27.5 % Normal 10.0 - 50.0 % AO Workflow SS MCH (RBC) [Entitic mass] 30.1 pg Normal 27.0 - 31.2 pg AO Workflow SS MCHC 34.2 G/dL Normal 33.0 - 37.0 G/dL AO Workflow SS MCV (RBC) [Entitic vol] 88.0 fL Normal 80.0 - 94.0 fL AO Workflow SS Monocyte distribution width Auto (Bld) [Entitic vol] 18.02 1 Normal 0.00 - 20.00 AO Workflow SS Comment on above: Result Comment: For ED adult patients suspected of sepsis, MDW<=20.0 does not rule out sepsis or risk of sepsis Monocyte, Absolute 0.4 103/mcL Normal 0.2 - 1.0 10^3/mcL AO Workflow SS Monocytes/100 WBC (Bld) 7.8 % Normal 1.7 - 13.0 % AO Workflow SS Neutrophil, Absolute 3.6 103/mcL Normal 2.9 - 6 .2 10^3/mcL AO Workflow SS Neutrophils/100 WBC (Bld) 63.1 % Normal 37.0 - 80.0 % AO Workflow SS Platelet mean volume (Bld) [Entitic vol] 7.3 fL Low 7.4 - 10.4 fL AO Workflow SS Platelets (Bld) [#/Vol] 251 103/mcL Normal 130 - 400 10^3/mcL AO Workflow SS Potassium [Moles/Vol] 4.1 mmol/L Normal 3.5 - 5.1 mmol/L AO ADM SS RBC (Bld) [#/Vol] 4.96 106/mcL Normal 4.20 - 5.4 0 10^6/mcL AO Workflow SS Sodium [Moles/Vol] 143 mmol/L Normal 136 - 145 mmol/L AO ADM SS Troponin I.cardiac DL <= 0.01 ng/mL [Mass/Vol] 6.1 ng/L Normal 0.0 - 51.4 ng/L AO ADM SS Urea nitrogen [Mass/Vol] 15 mg/dL Normal 7 - 18 mg/dL AO ADM SS Urea nitrogen/Creatinine [Mass ratio] 15 ratio Normal 7 - 27 ratio AO ADM SS WBC (Bld) [#/Vol] 5.7 103/mcL Normal 4.6 - 10.8 10^3/mcL AO Workflow SS TROPHSon 05-15-2023 Troponin I High Sensitivity 6.2 ng/L Normal 0.0-51.4 [facility] ([place]) Comment on above: Performed By: #### [facility] #### [address] [address] Troponin I High Sensitivity 6.1 ng/L Normal 0.0-51.4 [facility] ([place]) Comment on above: Performed By: #### G FR, FT4, TSH, LIPID, CMP #### [address] [address] XR CHEST 1 VIEWon 05-15-2023 XR CHEST 1 VIEW ORIGINAL EXAMINATION: ONE XRAY VIEW OF THE CHEST05/15/2023 8:23 am COMPARISON: None available at time of dictation. HISTORY: ORDERING SYSTEM PROVIDED HISTORY: Reason for Exam: chest pain FINDINGS: The cardiomediastinal contours are within normal limits. No focal consolidation or pulmonary edema. No pneumothorax or large volume pleural effusion. No acute osseous abnormalities. Degenerative changes of the spine. IMPRESSION: No acute radiographic findings. I have personally reviewed the images of this examination and agree with the resident's findings and interpretation. Interpreted by: Krystyna Strong MD Preliminary Report By: Savannah Orr Electronically signed By Krystyna Strong MD Dictated Date: 05/15/2023 8:25:31 AM Prelim Date: 05/15/2023 8:27:54 AM Sign Date: 05/15/2023 8:27:54 AM Ordering Provider: SHUBHAM OBANDO Normal [facility] ([place]) .GFRon 11-27-2022 GFR 75 ml/min/1.73sqm Normal [facility] ([place]) Comment on above: Result Comment: GFR Population mean for , Non- Americans Ages 20-29 = 116 mL/min/1.73 sq.m. Ages 30-39 = 107 mL/min/1.73 sq.m. Ages 40-49 = 99 mL/min/1.73 sq.m. Ages 50-59 = 93 mL/min/1.73 sq.m. Ages 60-69 = 85 mL/min/1.73 sq.m. Ages 70+ = 75 mL/min/1.73 sq.m. Chronic Kidney Disease: Less than 60 mL/min/1.73 square meters End Stage Renal Disease: Less than 15 mL/min/1.73 square meters Performed By: #### G FR, FT4, TSH, LIPID, CMP #### [address] [address] GFR Non- 62 ml/min/1.73sqm Normal [facility] ([place]) Comment on above: Result Comment: GFR Population mean for , Non- Americans Ages 20-29 = 116 mL/min/1.73 sq.m. Ages 30-39 = 107 mL/min/1.73 sq.m. Ages 40-49 = 99 mL/min/1.73 sq.m. Ages 50-59 = 93 mL/min/1.73 sq.m. Ages 60-69 = 85 mL/min/1.73 sq.m. Ages 70+ = 75 mL/min/1.73 sq.m. Chronic Kidney Disease: Less than 60 mL/min/1.73 square meters End Stage Renal Disease: Less than 15 mL/min/1.73 square meters Performed By: #### G FR, FT4, TSH, LIPID, CMP #### [address] [address] CMPon 11-27-2022 Albumin Level 4.0 G/dL Normal 3.4-4.8 [facility] ([place]) Comment on above: Performed By: #### G FR, FT4, TSH, LIPID, CMP #### [address] [address] Albumin/Globulin [Mass ratio] 1.7 {ratio} Normal 1.1-2.5 [facility] ([place]) Comment on above: Performed By: #### G FR, FT4, TSH, LIPID, CMP #### [address] [address] ALP [Catalytic activity/Vol] 82 U/L Normal 40-135 [facility] ([place]) Comment on above: Performed By: #### G FR, FT4, TSH, LIPID, CMP #### [address] [address] ALT [Catalytic activity/Vol] 28 U/L Normal 14-59 [facility] ([place]) Comment on above: Performed By: #### G FR, FT4, TSH, LIPID, CMP #### [address] [address] AST [Catalytic activity/Vol] 17 U/L Normal 10-40 [facility] ([place]) Comment on above: Performed By: #### G FR, FT4, TSH, LIPID, CMP #### [address] [address] Bili Total 0.3 mg/dL Normal 0.2-1.0 [facility] ([place]) Comment on above: Result Comment: Use of this assay is not recommended for patients undergoing treatment with eltrombopag due to the potential for falsely elevated results. Performed By: #### G FR, FT4, TSH, LIPID, CMP #### [address] [address] BUN/Creatinine Ratio 16 ratio Normal 7-27 [facility] ([place]) Comment on above: Performed By: #### G FR, FT4, TSH, LIPID, CMP #### [address] [address] Calcium [Mass/Vol] 10.0 mg/dL Normal 8.4-10.2 [facility] ([place]) Comment on above: Performed By: #### G FR, FT4, TSH, LIPID, CMP #### [address] [address] Chloride [Moles/Vol] 105 mmol/L Normal 98-107 [facility] ([place]) Comment on above: Performed By: #### G FR, FT4, TSH, LIPID, CMP #### [address] [address] CO2 [Moles/Vol] 31 mmol/L Normal 23-31 [facility] ([place]) Comment on above: Performed By: #### G FR, FT4, TSH, LIPID, CMP #### [address] [address] Creatinine [Mass/Vol] 0.91 mg/dL Normal 0.55-1.02 [facility] ([place]) Comment on above: Performed By: #### G FR, FT4, TSH, LIPID, CMP #### [address] [address] Electrolyte Balance 7.0 mEq/L Normal 4.0-15.0 [facility] ([place]) Comment on above: Performed By: #### G FR, FT4, TSH, LIPID, CMP #### [address] [address] Globulin 2.4 G/dL Normal [facility] ([place]) Comment on above: Performed By: #### G FR, FT4, TSH, LIPID, CMP #### [address] [address] Glucose [Mass/Vol] 96 mg/dL Normal 80-115 [facility] ([place]) Comment on above: Performed By: #### G FR, FT4, TSH, LIPID, CMP #### [address] [address] Potassium [Moles/Vol] 4.5 mmol/L Normal 3.5-5.1 [facility] ([place]) Comment on above: Performed By: #### G FR, FT4, TSH, LIPID, CMP #### [address] [address] Sodium [Moles/Vol] 143 mmol/L Normal 136-145 [facility] ([place]) Comment on above: Performed By: #### G FR, FT4, TSH, LIPID, CMP #### [address] [address] Total Protein 6.4 G/dL Normal 6.4-8.2 [facility] ([place]) Comment on above: Performed By: #### G FR, FT4, TSH, LIPID, CMP #### [id number] [place], [place] [address] Urea nitrogen [Mass/Vol] 15 mg/dL Normal 7-18 [facility] ([place]) Comment on above: Performed By: #### G FR, FT4, TSH, LIPID, CMP #### [id number] [place], [place] [address] FT4on 11-27-2022 Free T4 [Mass/Vol] 1.28 ng/dL Normal 0.76-1.46 [facility] ([place]) Comment on above: Performed By: #### G FR, FT4, TSH, LIPID, CMP #### [id number] [place], [place] [address] LABORATORYOrdered By: SYSTEM SYSTEM on 11-27-2022 Albumin BCP dye [Mass/Vol] 4.0 G/dL Invalid Interpretation Code 3.4 - 4.8 G/dL AO ADM SS Albumin/Globulin [Mass ratio] 1.7 {ratio} Invalid Interpretation Code 1.1 - 2.5 ratio AO ADM SS ALP [Catalytic activity/Vol] 82 U/L Invalid Interpretation Code 40 - 135 U/L AO ADM SS ALT With P-5'-P [Catalytic activity/Vol] 28 U/L Invalid Interpretation Code 14 - 59 U/L AO ADM SS AST With P-5'-P [Catalytic activity/Vol] 17 U/L Invalid Interpretation Code 10 - 40 U/L AO ADM SS Bilirubin [Mass/Vol] 0.3 mg/dL Invalid Interpretation Code 0.2 - 1.0 mg/dL AO ADM SS Calcium [Mass/Vol] 10.0 mg/dL Invalid Interpretation Code 8.4 - 10.2 mg/dL AO ADM SS Chloride [Moles/Vol] 105 mmol/L Invalid Interpretation Code 98 - 107 mmol/L AO ADM SS CO2 [Moles/Vol] 31 mmol/L Invalid Interpretation Code 23 - 31 mmol/L AO ADM SS Creatinine [Mass/Vol] 0.91 mg/dL Invalid Interpretation Code 0.55 - 1.02 mg/dL AO ADM SS Electrolyte Balance 7.0 mEq/L Invalid Interpretation Code 4.0 - 15.0 mEq/L AO ADM SS Free T4 [Mass/Vol] 1.28 ng/dL Invalid Interpretation Code 0.76 - 1.46 ng/dL AO ADM SS GFR/1.73 sq M.predicted among blacks MDRD (S/P/Bld) [Vol rate/Area] 75 ml/min/1.73sqm Invalid Interpretation Code AO Chemistry S GFR/1.73 sq M.predicted among non-blacks MDRD (S/P/Bld) [Vol rate/Area] 62 ml/min/1.73sqm Invalid Interpretation Code AO Chemistry S Globulin 2.4 G/dL Invalid Interpretation Code AO ADM SS Glucose [Mass/Vol] 96 mg/dL Invalid Interpretation Code 80 - 115 mg/dL AO ADM SS Potassium [Moles/Vol] 4.5 mmol/L Invalid Interpretation Code 3.5 - 5.1 mmol/L AO ADM SS Protein [Mass/Vol] 6.4 G/dL Invalid Interpretation Code 6.4 - 8.2 G/dL AO ADM SS Sodium [Moles/Vol] 143 mmol/L Invalid Interpretation Code 136 - 145 mmol/L AO ADM SS TSH Qn 0.53 m[IU]/L Invalid Interpretation Code 0.36 - 3.74 mcIU/mL AO ADM SS Urea nitrogen [Mass/Vol] 15 mg/dL Invalid Interpretation Code 7 - 18 mg/dL AO ADM SS Urea nitrogen/Creatinine [Mass ratio] 16 ratio Invalid Interpretation Code 7 - 27 ratio AO ADM SS LABORATORYOrdered By: Lv Mcdowell on 11-27-2022 Cholesterol [Mass/Vol] 163 mg/dL Invalid Interpretation Code 0 - 200 mg/dL AO ADM SS Cholesterol in HDL [Mass/Vol] 57 mg/dL Invalid Interpretation Code 40 - 60 mg/dL AO ADM SS Cholesterol in LDL [Mass/Vol] 96 mg/dL Invalid Interpretation Code 0 - 130 mg/dL AO ADM SS Triglyceride [Mass/Vol] 51 mg/dL Invalid Interpretation Code 0 - 150 mg/dL AO ADM SS LIPIDon 11-27-2022 Cholesterol [Mass/Vol] 163 mg/dL Normal 0-200 [facility] ([place]) Comment on above: Result Comment: Chol esterol Reference Interval: Less than 200 Desirable 200-239 Borderline high risk 240 and above High risk Performed By: #### G FR, FT4, TSH, LIPID, CMP #### [address] [address] Cholesterol in HDL [Mass/Vol] 57 mg/dL Normal 40-60 [facility] ([place]) Comment on above: Performed By: #### G FR, FT4, TSH, LIPID, CMP #### [address] [address] Cholesterol in LDL [Mass/Vol] 96 mg/dL Normal 0-130 [facility] ([place]) Comment on above: Performed By: #### G FR, FT4, TSH, LIPID, CMP #### Roxanne [address] [address] Triglyceride [Mass/Vol] 51 mg/dL Normal 0-150 [facility] ([place]) Comment on above: Result Comment: Trig lyceride Reference Interval: Less than 150 Normal 150-199 Borderline high risk 200-499 High risk 500 or higher Very high risk Performed By: #### G FR, FT4, TSH, LIPID, CMP #### [address] [address] TSHon 11-27-2022 TSH Qn 0.53 m[IU]/L Normal 0.36-3.74 [facility] ([place]) Comment on above: Performed By: #### G FR, FT4, TSH, LIPID, CMP #### [address] [address] BRIANDA SCREENINGon 11-24-2022 [facility] LABORATORYOrdered By: Lv Mcdowell on 11-28-2021 Albumin BCP dye [Mass/Vol] 4.4 G/dL Invalid Interpretation Code 3.4 - 4.8 G/dL AO ADM SS Albumin/Globulin [Mass ratio] 1.8 {ratio} Invalid Interpretation Code 1.1 - 2.5 ratio AO ADM SS ALP [Catalytic activity/Vol] 70 U/L Invalid Interpretation Code 40 - 135 U/L AO ADM SS ALT With P-5'-P [Catalytic activity/Vol] 32 U/L Invalid Interpretation Code 14 - 59 U/L AO ADM SS AST With P-5'-P [Catalytic activity/Vol] 20 U/L Invalid Interpretation Code 10 - 40 U/L AO ADM SS Bilirubin [Mass/Vol] 0.6 mg/dL Invalid Interpretation Code 0.2 - 1.0 mg/dL AO ADM SS Calcium [Mass/Vol] 9.8 mg/dL Invalid Interpretation Code 8.4 - 10.2 mg/dL AO ADM SS Chloride [Moles/Vol] 106 mmol/L Invalid Interpretation Code 98 - 107 mmol/L AO ADM SS Cholesterol [Mass/Vol] 170 mg/dL Invalid Interpretation Code 0 - 200 mg/dL AO ADM SS Cholesterol in HDL [Mass/Vol] 63 mg/dL Invalid Interpretation Code 40 - 60 mg/dL AO ADM SS Cholesterol in LDL [Mass/Vol] 93 mg/dL Invalid Interpretation Code 0 - 130 mg/dL AO ADM SS CO2 [Moles/Vol] 30 mmol/L Invalid Interpretation Code 23 - 31 mmol/L AO ADM SS Creatinine [Mass/Vol] 1.16 mg/dL Invalid Interpretation Code 0.55 - 1.02 mg/dL AO ADM SS Electrolyte Balance 8.0 mEq/L Invalid Interpretation Code 4.0 - 15.0 mEq/L AO ADM SS Free T4 [Mass/Vol] 1.42 ng/dL Invalid Interpretation Code 0.76 - 1.46 ng/dL AO ADM SS Globulin 2.5 G/dL Invalid Interpretation Code AO ADM SS Glucose [Mass/Vol] 79 mg/dL Invalid Interpretation Code 80 - 115 mg/dL AO ADM SS Potassium [Moles/Vol] 4.5 mmol/L Invalid Interpretation Code 3.5 - 5.1 mmol/L AO ADM SS Protein [Mass/Vol] 6.9 G/dL Invalid Interpretation Code 6.4 - 8.2 G/dL AO ADM SS Sodium [Moles/Vol] 144 mmol/L Invalid Interpretation Code 136 - 145 mmol/L AO ADM SS Triglyceride [Mass/Vol] 71 mg/dL Invalid Interpretation Code 0 - 150 mg/dL AO ADM SS TSH Qn 0.42 m[IU]/L Invalid Interpretation Code 0.36 - 3.74 mcIU/mL AO ADM SS Urea nitrogen [Mass/Vol] 16 mg/dL Invalid Interpretation Code 7 - 18 mg/dL AO ADM SS Urea nitrogen/Creatinine [Mass ratio] 14 ratio Invalid Interpretation Code 7 - 27 ratio AO ADM SS Vit. D 25-Hydroxy 60.6 ng/mL Invalid Interpretation Code AO ADM SS LABORATORYOrdered By: SYSTEM SYSTEM on 11-28-2021 GFR 57 ml/min/1.73sqm Invalid Interpretation Code AO Chemistry S GFR Non- 47 ml/min/1.73sqm Invalid Interpretation Code AO Chemistry S BRIANDA SCREENINGon 11-21-2021 [facility] NOVEL CORONAVIRUS NASOPHARYN GEAL - [facility] SPECIMEN ONLYon 02-20-2020 SARS-COV-2 NOT DETECTED Normal NOT DETECTED [facility] Comment on above: Order Comment: Viral transport media - Collection must be done while wearing N-95 mask, eye protection, gown and gloves. Please label ALL specimens as 2019-nCoV rule out and deliver by hand. This test was performed using real time PCR and has been approved for the qualitative detection of SARS-CoV-2 nucleic acid. The test has been authorized by the FDA under an emergency use authorization for use by authorized laboratories. Result Comment: Nega tive results do not preclude SARS-CoV-2 infection and should not be used as the sole basis for treatment or other patient management decisions. Optimum specimen types and timing for peak viral levels during infections caused by SARS-CoV-2 has not been determined. The possibility of a false negative result should especially be considered if the patient's recent exposures or clinical presentation suggest that SARS-CoV-2 infection is probable, and diagnostic tests for other causes of illness (e.g., other respiratory illness) are negative. Collection of a new specimen and re-testing may be necessary if the patient is critically ill or clinically deteriorating. Performed By: #### L [id number] #### [facility] (DEFAULT) [address] [place] [address] NOVEL CORONAVIRUS NASOPHARYN GEAL - [facility] SPECIMEN ONLYon 02-08-2020 SARS-COV-2 NOT DETECTED Normal NOT DETECTED [facility] Comment on above: Order Comment: Viral transport media - Collection must be done while wearing N-95 mask, eye protection, gown and gloves. Please label ALL specimens as 2019-nCoV rule out and deliver by hand. This test was performed using real time PCR and has been approved for the qualitative detection of SARS-CoV-2 nucleic acid. The test has been authorized by the FDA under an emergency use authorization for use by authorized laboratories. Result Comment: Nega tive results do not preclude SARS-CoV-2 infection and should not be used as the sole basis for treatment or other patient management decisions. Optimum specimen types and timing for peak viral levels during infections caused by SARS-CoV-2 has not been determined. The possibility of a false negative result should especially be considered if the patient's recent exposures or clinical presentation suggest that SARS-CoV-2 infection is probable, and diagnostic tests for other causes of illness (e.g., other respiratory illness) are negative. Collection of a new specimen and re-testing may be necessary if the patient is critically ill or clinically deteriorating. Performed By: #### L [id number] #### [facility] ([facility]) [address] [place] [address] ECG B/O W INTERP (MED OFFICE ) [facility] Vital Signs Date Time Vital Sign Value Performing Clinician Facility 12-09-2024 14:51-0400 Body height 163.4 cm Deanna Andreas SEASONAL CLERK.BLUNGER Work Phone: [facility] 12-09-2024 14:51-0400 Body mass index (BMI) [Ratio] 26.74 kg/m2 Deanna Andreas SEASONAL CLERK.BLUNGER Work Phone: [facility] 12-09-2024 14:51-0400 Body weight 71.4 kg Deanna Urbana SEASONAL CLERK.BLUNGER Work Phone: [facility] 12-09-2024 14:51-0400 Diastolic blood pressure 66 mm[Hg] Deanna Urbana SEASONAL CLERK.BLUNGER Work Phone: [facility] 12-09-2024 14:51-0400 Systolic blood pressure 118 mm[Hg] Deanna Urbana SEASONAL CLERK.BLUNGER Work Phone: [facility] 12-03-2023 06:52-0400 Body height 163.8 cm Deanna Andreas SEASONAL CLERK.BLUNGER Work Phone: [facility] 12-03-2023 06:52-0400 Body mass index (BMI) [Ratio] 27.48 kg/m2 Deanna Urbana SEASONAL CLERK.BLUNGER Work Phone: [facility] 12-03-2023 06:52-0400 Body weight 73.75 kg Deanna Urbana SEASONAL CLERK.BLUNGER Work Phone: [facility] 12-03-2023 06:52-0400 Diastolic blood pressure 68 mm[Hg] Deanna Urbana SEASONAL CLERK.BLUNGER Work Phone: [facility] 12-03-2023 06:52-0400 Systolic blood pressure 110 mm[Hg] Deanna Urbana SEASONAL CLERK.BLUNGER Work Phone: [facility] 05-15-2023 09:14-0500 Diastolic Blood Pressure Non-Invasive 85 mm[Hg] SHUBHAM OBANDO MD [facility] 05-15-2023 09:14-0500 Heart rate 66 /min SHUBHAM OBANDO MD [facility] 05-15-2023 09:14-0500 Respiratory rate 16 /min SHUBHAM OBANDO MD [facility] 05-15-2023 09:14-0500 Systolic Blood Pressure Non-Invasive 153 mm[Hg] SHUBHAM OBANDO MD [facility] 05-15-2023 08:15-0500 Diastolic Blood Pressure Non-Invasive 77 mm[Hg] SHUBHAM OBANDO MD [facility] 05-15-2023 08:15-0500 Heart rate 78 /min SHUBHAM OBANDO MD [facility] 05-15-2023 08:15-0500 Respiratory rate 16 /min SHUBHAM OBANDO MD [facility] 05-15-2023 08:15-0500 Systolic Blood Pressure Non-Invasive 155 mm[Hg] SHUBHAM OBANDO MD [facility] 05-15-2023 07:40-0500 Body height 162.6 cm SHUBHAM LYREN-SONDLES MD [facility] 05-15-2023 07:40-0500 Body temperature 98.24 [degF] SHUBHAM OBANDO MD [facility] 05-15-2023 07:40-0500 Body weight 75.1 kg SHUBHAM OBANDO MD [facility] 05-15-2023 07:40-0500 Diastolic Blood Pressure Non-Invasive 94 mm[Hg] SHUBHAM OBANDO MD [facility] 05-15-2023 07:40-0500 Heart rate 68 /min SHUBHAM OBANDO MD [facility] 05-15-2023 07:40-0500 Respiratory rate 20 /min SHUBHAM OBANDO MD [facility] 05-15-2023 07:40-0500 Systolic Blood Pressure Non-Invasive 164 mm[Hg] SHUBHAM OBANDO MD [facility] 11-24-2022 07:44-0400 Body height 164.5 cm Deanna Urbana SEASONAL CLERK.BLUNGER Work Phone: [facility] 11-24-2022 07:44-0400 Body weight 73.48 kg Deanna Urbana SEASONAL CLERK.BLUNGER Work Phone: [facility] 11-24-2022 07:44-0400 Diastolic blood pressure 60 mm[Hg] Deanna Andreas SEASONAL CLERK.BLUNGER Work Phone: [facility] 11-24-2022 07:44-0400 Systolic blood pressure 110 mm[Hg] Deanna Andreas SEASONAL CLERK.BLUNGER Work Phone: [facility] 11-21-2021 07:11-0400 Body height 162.6 cm Kell Russell SEASONAL CLERK.CNM Work Phone: [facility] 11-21-2021 07:11-0400 Body weight 74.84 kg Kell Russell SEASONAL CLERK.CNM Work Phone: [facility] 11-21-2021 07:11-0400 Diastolic blood pressure 80 mm[Hg] Kell Daniellets SEASONAL CLERK.CNM Work Phone: [facility] 11-21-2021 07:11-0400 Systolic blood pressure 110 mm[Hg] Kell Daniellets SEASONAL CLERK.CNM Work Phone: [facility] 10-04-2021 07:59-0400 Body height 162.6 cm Mikey Gross DO Work Phone: [facility] 10-04-2021 07:59-0400 Body weight 74.39 kg Mikey Gross DO Work Phone: [facility] 10-04-2021 07:59-0400 Diastolic blood pressure 92 mm[Hg] Mikey Gross DO Work Phone: [facility] 10-04-2021 07:59-0400 Heart rate 55 /min Mikey Gross DO Work Phone: [facility] 10-04-2021 07:59-0400 Systolic blood pressure 144 mm[Hg] Mikey Gross DO Work Phone: [facility] Encounters Encounter Date Encounter Type Care Provider Facility Start: 12-14-2024 Encounter for genera l adult medical examination without abnormal findings Haile Cochran [facility] Start: 12-14-2024 ambulatory Haile Osnabrock Facility: [facility] Start: 12-09-2024 End: 12-09-2024 Patient encounter procedure Deanna Johns SEASONAL CLERK.BLUNGER Work Phone: OB/Gynecology Comment on above: Encounter for gyneco logical examination (general) (routine) without abnormal findings (Primary Dx); Encounter for screening mammogram for breast cancer; Encounter for screening for osteoporosis; Unspecified menopausal and perimenopausal disorder Start: 12-09-2024 End: 12-09-2024 Patient encounter status Deanna Johns APRN.BLUNGER Work Phone: [facility] Start: 12-09-2024 Encounter for gynecological examination (general) (routine) without abnormal findings DEANNA JOHNS [facility] Start: 12-09-2024 End: 12-09-2024 ambulatory HAILE DORITA COCHRAN Facility:[facility] Start: 12-09-2024 End: 12-09-2024 Subsequent hospital visit by physician Screen Mammo [facility] Comment on above: Encounter for screen ing mammogram for breast cancer [Z12.31] Start: 02-02-2024 End: 02-02-2024 Emergency department patient visit KRYSTYNA LOMBARDI [facility] Start: 12-03-2023 End: 12-03-2023 Patient encounter procedure Deanna Johns APRN.BLUNGER Work Phone: OB/Gynecology Comment on above: Encounter for gyneco logical examination (general) (routine) without abnormal findings (Primary Dx); Encounter for screening mammogram for breast cancer; Dense breast tissue; Encounter for screening for osteoporosis Start: 12-03-2023 End: 12-03-2023 Patient encounter status Deanna Johns APRN.BLUNGER Work Phone: [facility] Start: 11-27-2023 Documentation procedure Mammog yon Coordinator [facility] Start: 11-27-2023 Letter encounter Mammography Coordinator [facility] Start: 11-27-2023 End: 11-27-2023 Subsequent hospital visit by physician Screen Mammo [facility] Comment on above: Encounter for screen ing mammogram for breast cancer [Z12.31] Start: 05-21-2023 End: 05-21-2023 ambulatory HAILE COCHRAN Facility:[id number] Start: 05-15-2023 End: 05-15-2023 Emergency department patient visit SHUBHAM OBANDO MD Facility:B Start: 05-15-2023 End: 05-15-2023 Emergency department patient visit SHUBHAM OBANDO MD [facility] Start: 11-27-2022 End: 11-28-2022 ambulatory HAILE COCHRAN MD Facility:[facility] Start: 11-27-2022 End: 11-27-2022 Patient encounter procedure HAILE COCHRAN MD [facility] Start: 11-26-2022 Documentation procedure Mammog yon Coordinator [facility] Start: 11-26-2022 Letter encounter Mammography Coordinator [facility] Start: 11-24-2022 End: 11-24-2022 Patient encounter procedure Deanna Johns SEASONAL CLERK.BLUNGER Work Phone: OB/Gynecology Comment on above: Encounter for gyneco logical examination (general) (routine) without abnormal findings (Primary Dx); Encounter for screening mammogram for breast cancer Start: 11-24-2022 End: 11-24-2022 Patient encounter status Deanna Johns SEASONAL CLERK.BLUNGER Work Phone: OB/Gynecology Start: 11-24-2022 End: 11-24-2022 Subsequent hospital visit by physician Screen Mammo [facility] Comment on above: Encounter for screen ing mammogram for breast cancer [Z12.31] Start: 10-06-2022 Patient encounter procedure [facility] Provider [facility] Start: 12-09-2021 Telephone encounter Stefani dash SEASONAL CLERK.BLUNGER Work Phone: [facility] Cardiology Comment on above: Blood Pressure Start: 11-28-2021 End: 11-28-2021 Patient encounter procedure HAILE COCHRAN MD [facility] Start: 11-21-2021 End: 11-21-2021 Subsequent hospital visit by physician Screen Mammo [facility] Comment on above: Encounter for screen ing mammogram for breast cancer [Z12.31] Start: 11-21-2021 End: 11-21-2021 Patient encounter procedure Kell Russell SEASONAL CLERK.CNM Work Phone: OB/Gynecology Comment on above: Encounter for gyneco logical examination (general) (routine) without abnormal findings; Encounter for screening for human papillomavirus (HPV); Pap smear for cervical cancer screening; Encounter for screening mammogram for breast cancer Start: 11-21-2021 End: 11-21-2021 Patient encounter status Kell Russell SEASONAL CLERK.CNM Work Phone: OB/Gynecology Start: 10-04-2021 End: 10-04-2021 Patient encounter procedure Mikey Everett DO Work Phone: [facility] Comment on above: Essential hypertensi on, benign (Primary Dx); Mixed hyperlipidemia; Coronary artery disease involving [place] coronary artery of [place] heart with angina pectoris (HCC); Heart murmur; History of left heart catheterization; Former smoker Procedures Date Procedure Procedure Detail Performing Clinician Start: 11-27-2023 Screening mammograph y bi 2-view breast inc cad Deanna Andreas SEASONAL CLERK.BLUNGER Work Phone: Start: 11-24-2022 End: 11-24-2022 Mammography Kell Russell SEASONAL CLERK.CNM Work Phone: Start: 11-21-2021 End: 11-21-2021 Mammography Kell Russell SEASONAL CLERK.CNM Work Phone: Start: 10-04-2021 Ecg routine ecg w/le ast 12 lds w/i&r Mikey Everett DO Work Phone: Start: 11-19-2020 Mammography Mikey York s DO Work Phone: Start: 06-20-2013 Colonoscopy Mikey Mosleys s DO Work Phone: Start: 08-24-2011 Lipid 1996 panel - [place] or Plasma Screen [facility] Start: 11-08-2010 Cardiac catheter (ph ysical object) HAILE COCHRAN MD Start: 04-24-2010 Total thyroidectomy MARIPOSA COCHRAN MD Comment on above: Dr. Alarcon Plan of Treatment Date Care Activity Detail Author Start: 2033 RSV Vaccine (1 - 1-d ose 75+ series) RSV Vaccine (1 - 1-dose 75+ series) [facility] Start: 11-21-2026 HPV TESTING HPV TESTING [facility] Start: 11-21-2026 PAP TESTING PAP TESTING [facility] Start: 12-14-2025 End: 12-14-2025 Patient encounter procedure Mammogram Comment on above: Encounter for gyneco logical examination (general) (routine) without abnormal findings [Z01.419]; Encounter for screening mammogram for breast cancer [Z12.31] Annual Start: 03-09-2025 End: 03-09-2025 Patient encounter procedure 03/09/2025 3:25 PM EDT Appointment Radiology [address] [place] [address] : Encounter for screening for osteoporosis [Z13.820] Radiology Comment on above: : Encounter for scre ening for osteoporosis [Z13.820] Start: 01-23-2025 Influenza vaccination Influenza Vacc ine (#1) [facility] Start: 12-02-2024 End: 12-02-2024 Patient encounter procedure Mammogram Comment on above: Encounter for screen ing mammogram for breast cancer [Z12.31] annual Start: 11-26-2024 Screening for malign ant neoplasm of breast Mammogram Screening [facility] Start: 05-25-2024 Advance Directive Discussion Advance Directive Discussion [facility] Start: 05-23-2024 End: 05-23-2024 Patient encounter procedure 05/23/2024 11:00 AM EST Office Visit [facility] [address] [place] [id number] Mikey Everett DO [address] [place] [address] [place] [id number] 1 year follow up [facility] Comment on above: 1 year follow up Start: 02-03-2024 Urine microalbumin profile DTaP,Tdap,Td Vaccine (1 - Tdap) [facility] Start: 01-28-2024 End: 01-28-2024 Patient encounter procedure 01/28/2024 7:45 AM EDT Appointment Radiology [address] [place] [phone] Encounter for screening for osteoporosis [Z13.820] Radiology Comment on above: Encounter for screen ing for osteoporosis [Z13.820] Start: 01-24-2024 Covid-19 Vaccine ( season) Covid-19 Vaccine () [facility] Start: 01-24-2024 Influenza vaccination Influenza Vacc ine (#1) [facility] Start: 01-24-2024 Medicare Annual Wellness Visit Medicare Annual Wellness Visit [facility] Start: 12-03-2023 End: 12-03-2023 Patient encounter procedure 12/03/2023 7:00 AM EDT Office Visit OB/Gynecology [address] [place] [address] Deanna Johns APRN.BLUNGER [address] [place] [address] Annual visit w/ pap OB[facility]Gynecology Comment on above: Annual visit w/ pap Start: 11-25-2023 Mammography [facility] Start: 10-06-2023 Advance Directive Discussion Advance Directive Discussion [facility] Start: 10-06-2023 Pneumococcal Vaccine : 65+ (1 of 1 - PCV) Pneumococcal Vaccine: 65+ (1 of 1 - PCV) [facility] Start: 10-06-2023 Screening for osteoporosis Bone Density Screening [facility] Start: 06-20-2023 Colonoscopy COLONOSCOPY [facility] Start: 06-20-2023 COLORECTAL CANCER SCREENING COLORECTAL CANCER SCREENING [facility] Start: 06-20-2023 Screening for malign ant neoplasm of colon [facility] Start: 05-25-2023 Behavioral Health Screening Behavioral Health Screening [facility] Start: 01-23-2023 Covid-19 Vaccine ( season) Covid-19 Vaccine () [facility] Start: 01-23-2023 Influenza vaccination C [facility] Start: 11-21-2022 Mammography MAMMOGRAM [facility] Start: 05-25-2022 DEPRESSION ASSESSMENT DEPRESSION ASS ESSMENT [facility] Start: 01-23-2022 Influenza vaccination C [facility] Start: 11-19-2021 Mammography MAMMOGRAM [facility] Start: 06-30-2021 HPV TESTING HPV TESTING [facility] Start: 06-30-2021 PAP TESTING PAP TESTING [facility] Start: 11-20-2020 COVID-19 VACCINE (3 - Booster for Moderna series) COVID-19 VACCINE (3 - Booster for Moderna series) [facility] Start: 08-17-2020 COVID-19 VACCINE (3 - Booster for Moderna series) COVID-19 VACCINE (3 - Booster for Moderna series) [facility] Start: 2018 RSV Vaccine (1 - 1-d ose 60+ series) RSV Vaccine (1 - 1-dose 60+ series) [facility] Start: 06-25-2018 DIABETES SCREEN DIABETES SCREEN [facility] Start: 06-25-2018 Diabetes Screening Diabetes Screenin g [facility] Start: 08-23-2016 Lipid 1996 panel - Serum or Plasma Lipid Screening [facility] Start: 08-23-2016 Lipid panel Lipid Screening [facility] Start: 08-23-2016 LIPID SCREEN LIPID SCREEN [facility] Start: 2008 Pneumococcal Vaccine : 50+ (1 of 1 - PCV) Pneumococcal Vaccine: 50+ (1 of 1 - PCV) [facility] Start: 2008 SHINGRIX VACCINE (1 of 2) SHINGRIX VACCINE (1 of 2) [facility] Start: 10-06-2003 COLOGUARD (FIT-DNA) COLOGUARD (FIT-D NA) [facility] Start: 10-06-[address] COLONOGRAPHY [facility] Start: 10-06-2003 FECAL OCCULT BLOOD FECAL OCCULT BLOO D [facility] Start: 10-06-2003 Screening for malign ant neoplasm of colon [facility] Start: 10-06-[address] [facility] Start: 1977 Urine microalbumin profile [facility] Start: 1976 ANNUAL PCP TEAM CLIENT SUCCESS DIRECTOR DANICA DISEASE VISIT ANNUAL PCP TEAM CHRONIC DISEASE VISIT [facility] Start: 1976 Anxiety Screening Anxiety Screening [facility] Start: 1976 BP CONTROLLED (<130/80) BP CONTROLLE D (<130/80) [facility] Start: 1976 Depression Screening Depression Scre ening [facility] Start: 1976 Hepatitis B surface antibody level LDL CHOLESTEROL [facility] Start: 1976 HEPATITIS C SCREENING HEPATITIS C SC [facility] Start: 1976 Hepatitis C screening Hepatitis C [facility] Start: 1976 HIV SCREENING HIV SCREENING [facility] Start: 1976 HIV screening HIV Screening [facility] Start: 1970 Adult depression screening assessment DEPRESSION SCREENING [facility] Start: 1964 PNEUMOCOCCAL (1 - PCV) PNEUMOCOCCAL (1 - PCV) [facility] End: 01-01-2025 BD DXA TRABECULAR BONE SCORE (TBS) BD DXA TRABECULAR BONE SCORE (TBS) Radiology Routine Encounter for screening for osteoporosis 1 Occurrences starting 12/03/2023 until 01/01/2025 [facility] Comment on above: 1 Occurrences starti ng 12/03/2023 until 01/01/2025 End: 01-08-2026 BD DXA TRABECULAR BONE SCORE (TBS) BD DXA TRABECULAR BONE SCORE (TBS) Radiology Routine Encounter for screening for osteoporosis 1 Occurrences starting 12/09/2024 until 01/08/2026 [facility] Comment on above: 1 Occurrences starti ng 12/09/2024 until 01/08/2026 End: 01-01-2025 DBT Breast - bilateral screening BRIANDA SCREENING W SHREYA Radiology Routine Encounter for screening mammogram for breast cancer Dense breast tissue 1 Occurrences starting 12/03/2023 until 01/01/[address] [facility] Work Phone: Comment on above: 1 Occurrences starti ng 12/03/2023 until 01/01/2025 End: 01-08-2026 DBT Breast - bilateral screening BRIANDA SCREENING W SHREYA Radiology Routine Encounter for gynecological examination (general) (routine) without abnormal findings Encounter for screening mammogram for breast cancer 1 Occurrences starting 12/09/2024 until 01/08/[address] [facility] Work Phone: Comment on above: 1 Occurrences starti ng 12/09/2024 until 01/08/2026 DBT Breast - bilater al screening BRIANDA SCREENING W SHREYA Radiology Routine Encounter for screening mammogram for breast cancer Dense breast tissue 12/09/2024 2:20 PM EDT [facility] Work Phone: End: 01-01-2025 DXA Skeletal system.axial Views for bone density DXA-AXIAL SKELETON Radiology Routine Encounter for screening for osteoporosis 1 Occurrences starting 12/03/2023 until 01/01/2025 [facility] Comment on above: 1 Occurrences starti ng 12/03/2023 until 01/01/2025 End: 01-08-2026 DXA Skeletal system.axial Views for bone density DXA-AXIAL SKELETON Radiology Routine Encounter for screening for osteoporosis Unspecified menopausal and perimenopausal disorder 1 Occurrences starting 12/09/2024 until 01/08/2026 [facility] Comment on above: 1 Occurrences starti ng 12/09/2024 until 01/08/2026 End: 12-24-2023 BRIANDA SCREENING BRIANDA SCREENING Radiology Routine Encounter for screening mammogram for breast cancer 1 Occurrences starting 11/24/2022 until 12/24/[address] [facility] Work Phone: Comment on above: 1 Occurrences starti ng 11/24/2022 until 12/24/2023 PAP FLUID CERVICAL SCREENING PAP FLUID CERVICAL SCREENING Lab Routine Encounter for gynecological examination (general) (routine) without abnormal findings Encounter for screening for human papillomavirus (HPV) Pap smear for cervical cancer screening Ordered: 11/21/[address] [facility] Work Phone: Comment on above: Ordered: 11/21/2021 End: 12-21-2022 Screening mammography bi 2-view breast inc cad BRIANDA SCREENING Radiology Routine Encounter for screening mammogram for breast cancer 1 Occurrences starting 11/21/2021 until 12/21/[address] [facility] Work Phone: Comment on above: 1 Occurrences starti ng 11/21/2021 until 12/21/2022 [facility] Immunizations Immunization Date Immunization Notes Care Provider Arvin [facility] 02-02-2024 tetanus and diphther ia toxoids, adsorbed, preservative free, for adult use (5 Lf of tetanus toxoid and 2 Lf of diphtheria toxoid) Deanna Andreas SEASONAL CLERK.BLUNGER Work Phone: [facility] 03-19-2023 influenza, injectabl e, quadrivalent, preservative free Deanna Urbana SEASONAL CLERK.BLUNGER Work Phone: [facility] 03-19-2023 influenza virus vaccine, unspecified formulation Screen Wstr [facility] 03-13-2023 zoster vaccine recombinant; Translations: [Shingrix] SHUBHAM OBANDO MD [facility] 12-05-2022 zoster vaccine recombinant; Translations: [Shingrix] SHUBHAM OBANDO MD [facility] 06-14-2022 SARS-CoV-2 (CV19)mRNA-1273 bivalent vac HAILE COCHRAN MD [facility] 03-24-2022 influenza virus vaccine, unspecified formulation HAILE COCHRAN MD [facility] 03-24-2022 Influenza, injectabl e, Madin Watton Canine Kidney, preservative free, quadrivalent Deanna Urbana SEASONAL CLERK.BLUNGER Work Phone: [facility] 12-14-2021 SARS-CoV-2 (COVID-19 ) mRNA-1273 vaccine HAILE COCHRAN MD [facility] 06-22-2020 SARS-CoV-2 (COVID-19 ) mRNA-1273 vaccine HAILE COCHRAN MD [facility] 05-23-2020 SARS-CoV-2 (COVID-19 ) mRNA-1273 vaccine HAILE COCHRAN MD [facility] 04-25-2019 Influenza, injectabl e, Madin Estefanía Canine Kidney, preservative free, quadrivalent Deanna Urbana SEASONAL CLERK.BLUNGER Work Phone: [facility] 03-22-2018 influenza, injectabl e, quadrivalent, preservative free Deanna Urbana SEASONAL CLERK.BLUNGER Work Phone: [facility] Payers Date Payer Category Payer Self-pay 2024 Unknown [id number] 2024 Medicare MEDICARE [id number] 2024 Medicare [id number] 2024 Medicare [id number] 2021 Private Health Insurance [facility] [id number] 2021-Present [id number] [place], [place] [id number] O [id number] 2021 Private Health Insurance [facility] [id number] 2021-Present [id number] [place] [id number] O [id number] 2021 Private Health Insurance [id number] 1960 Unknown [id number] 1960 Unknown [id number] Unknown [id number] Social History Date Type Detail Facility Start: 09-28-2020 End: 12-09-2024 Tobacco smoking status NHIS Ex-smoker [facility] Start: 05-25-1977 End: 05-25-1980 History of tobacco use Current smoker [facility] Start: 05-25-1977 End: 05-25-1980 History of tobacco use Cigarette Smoker [facility] Start: 09-28-2020 End: 06-20-2022 Cigarettes smoked current (pack per day) - Reported 0.5 [facility] Start: 09-28-2020 End: 12-09-2024 Tobacco use and exposure Smokeless tobacco non-user [facility] Start: 10-04-2021 End: 12-09-2024 Alcohol intake Current non-drinker of alcohol (finding) [facility] Start: 1960 Sex Assigned At Not on file C [facility] Start: 09-24-2021 End: 11-21-2021 Exposure to SARS-CoV-2 (event) Not sure [facility] Start: 02-29-2020 Tobacco smoking status Never s moked tobacco (finding) [facility] Sex Assigned At Sex [facility] Start: 06-20-2022 End: 11-24-2022 Tobacco use panel [facility] National Score (1-10 0), lower number is lower risk 63 [facility] NEGATED: Highlighted rowStart: NINF History of tobacco use Passive smoker [facility] Goals Date Patient Goal Desired Activity /State Personal health goal Functional Status Date Assessment Result Facility 05-15-2023 Functional Status Independent [facility] 05-15-2023 Functional Status Positioning Re positions self [facility] 06-14-2014 Are you deaf, or do you have serious difficulty hearing No 06/14/2014 10:31 AM Loly Saba MA No [facility] 06-14-2014 Are you blind, or do you have serious difficulty seeing, even when wearing glasses No 06/14/2014 10:31 AM Loly Saba MA No [facility] 06-14-2014 Do you have serious difficulty walking or climbing stairs No 06/14/2014 10:31 AM Loly Saba MA No [facility] 06-14-2014 Do you have difficul ty dressing or bathing No 06/14/2014 10:31 AM Loly Saba MA No [facility] 06-14-2014 Because of a physica l, mental, or emotional condition, do you have difficulty doing errands alone such as visiting a physician's office or shopping No 06/14/2014 10:31 AM Loly Saba MA No [facility] Mental Status Date Assessment Result Facility 05-15-2023 Mental Status Orientation Oriented x 4 [facility] 05-15-2023 Mental Status [facility] 06-14-2014 Because of a physica l, mental, or emotional condition, do you have serious difficulty concentrating, remembering, or making decisions No 06/14/2014 10:31 AM Loly Saba MA No [facility] Clinical Notes 09-07-2019 to 12-09-2024 Deanna Johns APRN.CNP - 12/09/2024 2:41 PM Glenna Groves RT(R) - 12/09/2024 2:30 PM Deanna Irvin APRN.CNP - 12/03/2023 6:52 AM Glenna Groves RT(R) - 11/27/2023 7:10 AM EDT Note Date & Type Note Facility 12-09-2024 Note HNO ID: [id number] Author: DEANNA JOHNS APRN.RAINER Service: ? Author Type: Nurse Practitioner Type: Progress Notes Filed: 12/09/2024 15:10 Note Text: 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 Postmenopausal: Yes since age 52 HRT use: No. Last Pap: 12/02/2021 normal HPV: 11/27/2021 negative History of abnormal pap: No Last mammogram: 2024 today History of abnormal mammogram: No Sexually active: Yes OB History Gravida1 Para1 Term0 Preterm0 AB0 Living1 SAB0 IAB0 Ectopic0 Multiple0 Live Births0 Comment: 1 vaginal delivery [employer] History LMP: 01/17/2013, Postmenopausal Age at Menarche: Age at First : Age at Menopause: [employer] History Comments: Sexual Activity: Yes; Male Contraception: Vasectomy PAST MEDICAL HISTORY Diagnosis Date Acute [place] ([place] 10/2010 Heart murmur History of left heart catheterization 11/08/2010 Patient has atherosclerosis. A long mid LAD about 50% stenosis. RCA and circumflex are noted to be free of disease. Hx of skin cancer, basal cell 2012 Hypothyroidism Migraines Mixed hyperlipidemia Toxic goiter 1999 PAST SURGICAL HISTORY Procedure Laterality Date COLONOSCOPY FLX DX W/COLLJ SPEC WHEN PFRMD 06/20/2013 Colonoscopy EGD 02/16/05 w/ bx PAST SURGICAL HISTORY OF radio active iodine for graves disease PAST SURGICAL HISTORY OF 05/2012 basil cell removal from nose THYROIDECTOMY TOTAL/COMPLETE 04/24/10 [facility] FAMILY HISTORY Problem Relation Age of Onset Hypertension Mother Alzheimer's Disease Mother Mild Alzheimer's Stroke Mother Hypertension Father Heart Failure Maternal Grandfather Heart Paternal Uncle SOCIAL HISTORY Social History Tobacco Use Smoking status: Former Current packs/day: 0.00 Average packs/day: 0.5 packs/day for 3.0 years (1.5 ttl pk-yrs) Types: Cigarettes Start date: 1977 Quit date: 1980 Years since quittin.5 Passive exposure: Never Smokeless tobacco: Never Vaping Use Vaping status: Never Used Substance Use Topics Alcohol use: No Drug use: No REVIEW OF SYSTEMS Abdomen: No abdominal pain, nausea, vomiting, diarrhea, or constipation. No bloating, early satiety, indigestion, or increased flatulence. Bladder: No dysuria, gross hematuria, urinary frequency, urinary urgency, or incontinence Breast: No breast lumps, nipple d/c, overlying skin changes, redness or skin retraction Allergies and current medication updated:Yes SENSITIVE EXAM: The sensitive examination was discussed with the Patient or Patient's Authorized It Infrastructure Specialist. As applicable, any other physician, advance practice provider, medical student, or other health professional student that will be observing or involved in the sensitive examination for educational or training purposes was discussed with the Patient or Authorized It Infrastructure Specialist. The Patient or Authorized It Infrastructure Specialist has agreed to proceed with the sensitive examination. (Sensitive examination includes inspection and/or palpation of the breasts, pelvis, prostate and anorectal regions). EXAM: BP 118/66 Ht 5' 4.331 (1.63m) Wt 157 lb 6.4 oz (71.4kg) LMP 01/17/2013 BMI 26.74 kg/(m2). GENERAL: pleasant, female in no apparent distress HEENT: Normocephalic, atraumatic, mucus membranes moist, and no lesions DERMATOLOGY: Normal, without lesions, non-icteric, and non-hirsute BREAST: soft, non-tender, symmetric, no dominant mass, normal nipple-areolar complex, no lymphadenopathy, and no nipple discharge CHEST: Normal inspiratory effort ABDOMEN: soft, non-tender, and no masses PELVIC: external genitalia normal, normal Bartholin's glands, urethra, [place]'s glands, no vulvar lesions, no cervical lesions, physiologic discharge present, normal appearing perineal body and perianal region BIMANUAL: uterus normal size, shape and consistency, no adnexal masses, and non-tender RECTOVAGINAL: deferred. NEURO: alert and oriented x3,exam grossly non-focal EXTREMITIES: normal ASSESSMENT/PLAN: 1) Health maintenance: Pap/HPV screening no longer needed Mammogram ordered Mammogram up to date Nutrition, exercise and routine health maintenance exams reviewed. Colon cancer screening: declined BMD: ordered 2) Follow up one year or sooner as needed Deanna Johns APRN.[facility] 12-09-2024 History of Presen t illness Narrative 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 Postmenopausal: Yes since age 52 HRT use: No. Last Pap: 12/02/2021 normal HPV: 11/27/2021 negative History of abnormal pap: No Last mammogram: 2024 today History of abnormal mammogram: No Sexually active: Yes OB History Gravida1 Para1 Term0 Preterm0 AB0 Living1 SAB0 IAB0 Ectopic0 Multiple0 Live Births0 Comment: 1 vaginal delivery [employer] History LMP: 01/17/2013, Postmenopausal Age at Menarche: Age at First : Age at Menopause: [employer] History Comments: Sexual Activity: Yes; Male Contraception: Vasectomy PAST MEDICAL HISTORY Diagnosis Date Acute [place] ([place] 10/2010 Heart murmur History of left heart catheterization 11/08/2010 Patient has atherosclerosis. A long mid LAD about 50% stenosis. RCA and circumflex are noted to be free of disease. Hx of skin cancer, basal cell 2012 Hypothyroidism Migraines Mixed hyperlipidemia Toxic goiter 1999 PAST SURGICAL HISTORY Procedure Laterality Date COLONOSCOPY FLX DX W/COLLJ SPEC WHEN PFRMD 06/20/2013 Colonoscopy EGD 02/16/05 w/ bx PAST SURGICAL HISTORY OF radio active iodine for graves disease PAST SURGICAL HISTORY OF 05/2012 basil cell removal from nose THYROIDECTOMY TOTAL/COMPLETE 04/24/10 [facility] FAMILY HISTORY Problem Relation Age of Onset Hypertension Mother Alzheimer's Disease Mother Mild Alzheimer's Stroke Mother Hypertension Father Heart Failure Maternal Grandfather Heart Paternal Uncle SOCIAL HISTORY Social History Tobacco Use Smoking status: Former Current packs/day: 0.00 Average packs/day: 0.5 packs/day for 3.0 years (1.5 ttl pk-yrs) Types: Cigarettes Start date: 1977 Quit date: 1980 Years since quittin.5 Passive exposure: Never Smokeless tobacco: Never Vaping Use Vaping status: Never Used Substance Use Topics Alcohol use: No Drug use: No REVIEW OF SYSTEMS Abdomen: No abdominal pain, nausea, vomiting, diarrhea, or constipation. No bloating, early satiety, indigestion, or increased flatulence. Bladder: No dysuria, gross hematuria, urinary frequency, urinary urgency, or incontinence Breast: No breast lumps, nipple d/c, overlying skin changes, redness or skin retraction Allergies and current medication updated:Yes SENSITIVE EXAM: The sensitive examination was discussed with the Patient or Patient's Authorized It Infrastructure Specialist. As applicable, any other physician, advance practice provider, medical student, or other health professional student that will be observing or involved in the sensitive examination for educational or training purposes was discussed with the Patient or Authorized It Infrastructure Specialist. The Patient or Authorized It Infrastructure Specialist has agreed to proceed with the sensitive examination. (Sensitive examination includes inspection and/or palpation of the breasts, pelvis, prostate and anorectal regions). EXAM: BP 118/66 Ht 5' 4.331 (1.63m) Wt 157 lb 6.4 oz (71.4kg) LMP 01/17/2013 BMI 26.74 kg/(m^2). GENERAL: pleasant, female in no apparent distress HEENT: Normocephalic, atraumatic, mucus membranes moist, and no lesions DERMATOLOGY: Normal, without lesions, non-icteric, and non-hirsute BREAST: soft, non-tender, symmetric, no dominant mass, normal nipple-areolar complex, no lymphadenopathy, and no nipple discharge CHEST: Normal inspiratory effort ABDOMEN: soft, non-tender, and no masses PELVIC: external genitalia normal, normal Bartholin's glands, urethra, [place]'s glands, no vulvar lesions, no cervical lesions, physiologic discharge present, normal appearing perineal body and perianal region BIMANUAL: uterus normal size, shape and consistency, no adnexal masses, and non-tender RECTOVAGINAL: deferred. NEURO: alert and oriented x3,exam grossly non-focal EXTREMITIES: normal ASSESSMENT/PLAN: 1) Health maintenance: Pap/HPV screening no longer needed Mammogram ordered Mammogram up to date Nutrition, exercise and routine health maintenance exams reviewed. Colon cancer screening: declined BMD: ordered 2) Follow up one year or sooner as needed Deanna Johns APRN.CNP documented in this encounter [facility] 12-09-2024 History of Presen t illness Narrative Radiology Service Progress Note PATIENT NAME: Sadie Velasco DATE OF SERVICE: December 09, 2024 TIME: 2:46 PM PATIENT IDENTITY VERIFICATION COMPLETED USING TWO (2) IDENTIFIERS: Name and Date of confirmed by patient verbally. FALL SCREENING: Has the patient had 2 falls in the last year or 1 fall with injury or currently using an Ambulatory Assistive Device (Walker, Cane, Wheelchair, Crutches, etc.)? No PATIENT GENDER DATA: Assigned female at . status: : No status: NO. PATIENT RELEVANT IMPLANT DATA REVIEWED: Not Applicable PATIENT PRESENTS WITH AN IMPLANTABLE OR ATTACHED METALLURGIST PROCESS: No RADIOLOGY DEPARTMENT: Mammography PERIPHERAL IV DATA: Not applicable SIGNED BY: ALYSE Ramesh) December 09, 2024 2:46 PM documented in this encounter [facility] 12-09-2024 Note HNO ID: [id number] Author: GLENNA GONZALEZ RT(R) Service: ? Author Type: Technologist Type: Progress Notes Filed: 12/09/2024 14:47 Note Text: Radiology Service Progress Note PATIENT NAME: Sadie Velasco DATE OF SERVICE: December 09, 2024 TIME: 2:46 PM PATIENT IDENTITY VERIFICATION COMPLETED USING TWO (2) IDENTIFIERS: Name and Date of confirmed by patient verbally. FALL SCREENING: Has the patient had 2 falls in the last year or 1 fall with injury or currently using an Ambulatory Assistive Device (Walker, Cane, Wheelchair, Crutches, etc.)? No PATIENT GENDER DATA: Assigned female at . status: : No status: NO. PATIENT RELEVANT IMPLANT DATA REVIEWED: Not Applicable PATIENT PRESENTS WITH AN IMPLANTABLE OR ATTACHED METALLURGIST PROCESS: No RADIOLOGY DEPARTMENT: Mammography PERIPHERAL IV DATA: Not applicable SIGNED BY: RT Domitila(R) December 09, 2024 2:46 PM [facility] 12-03-2023 History of Presen t illness Narrative Yoga Teacher offered: Patient declinesAry Noel is a 63 year old who presents for an annual gynecologic exam without complaints. Postmenopausal: Yes since age 52 HRT use: No. Last Pap: 12/02/2021 normal HPV: 11/27/2021 negative History of abnormal pap: No Last mammogram: 2023 normal History of abnormal mammogram: No Sexually active: Yes Pain with intercourse: No Postcoital bleeding: No OB History T0 L1 SAB0 IAB0 Ectopic0 Multiple0 Live Births0 Comment: 1 vaginal delivery [employer] History LMP: 01/17/2013, Postmenopausal Age at Menarche: Age at First : Age at Menopause: [employer] History Comments: Sexual Activity: Yes; Male Contraception: Vasectomy PAST MEDICAL HISTORY Diagnosis Date Acute [place] ([place] 10/2010 Heart murmur History of left heart catheterization 11/08/2010 Patient has atherosclerosis. A long mid LAD about 50% stenosis. RCA and circumflex are noted to be free of disease. Hx of skin cancer, basal cell 2012 Hypothyroidism Migraines Mixed hyperlipidemia Toxic goiter 1999 PAST SURGICAL HISTORY Procedure Laterality Date COLONOSCOPY FLX DX W/COLLJ SPEC WHEN PFRMD 06/20/2013 Colonoscopy EGD 02/16/05 w/ bx PAST SURGICAL HISTORY OF radio active iodine for graves disease PAST SURGICAL HISTORY OF 05/2012 basil cell removal from nose THYROIDECTOMY TOTAL/COMPLETE 04/24/10 [facility] FAMILY HISTORY Problem Relation Age of Onset Hypertension Mother Alzheimer's Disease Mother Mild Alzheimer's Stroke Mother Hypertension Father Heart Failure Maternal Grandfather Heart Paternal Uncle SOCIAL HISTORY Social History Tobacco Use Smoking status: Former Packs/day: 0.50 Years: 3.00 Additional pack years: 0.00 Total pack years: 1.50 Types: Cigarettes Quit date: 1980 Years since quittin.5 Passive exposure: Never Smokeless tobacco: Never Vaping Use Vaping Use: Never used Substance Use Topics Alcohol use: No Drug use: No REVIEW OF SYSTEMS Abdomen: No abdominal pain, nausea, vomiting, diarrhea, or constipation. No bloating, early satiety, indigestion, or increased flatulence. Bladder: No dysuria, gross hematuria, urinary frequency, urinary urgency, + stress incontinence Breast: No breast lumps, nipple d/c, overlying skin changes, redness or skin retraction Allergies and current medication updated:Yes EXAM: Ht 5' 4.5 (1.64m) Wt 162 lb 9.6 oz (73.8kg) LMP 01/17/2013 BMI 27.49 kg/(m^2). GENERAL: pleasant, female in no apparent distress HEENT: Normocephalic, atraumatic, mucus membranes moist, and no lesions NECK: Supple, full range of motion, no adenopathy, and thyroid normal DERMATOLOGY: Normal, without lesions, non-icteric, and non-hirsute BREAST: soft, non-tender, symmetric, no dominant mass, normal nipple-areolar complex, no lymphadenopathy, and no nipple discharge CHEST: Normal inspiratory effort ABDOMEN: soft, non-tender, and no masses PELVIC: external genitalia normal, normal Bartholin's glands, urethra, [place]'s glands, no vulvar lesions, no cervical lesions, good vaginal support, physiologic discharge present, normal appearing perineal body and perianal region BIMANUAL: uterus normal size, shape and consistency, no adnexal masses, and non-tender RECTOVAGINAL: deferred. NEURO: alert and oriented x3,exam grossly non-focal EXTREMITIES: normal ASSESSMENT/PLAN: 1) Health maintenance: Pap/HPV up to date. Mammogram ordered Mammogram up to date Nutrition, exercise and routine health maintenance exams reviewed. Calcium/Vitamin D supplementation information provided. BMD: ordered 2) Follow up one year or sooner as needed Deanna Johns APRN.RAINER documented in this encounter [facility] 11-27-2023 Note Formatting of this n ote might be different from the original. November 27, 2023 PID: [id number] Sadie Velasco [address] [place] [address] Dear Ms. Velasco, We are pleased to inform you that the results of your recent breast imaging exam on 11/27/2023 are normal. Early detection of cancer is very important. We also understand recommendations regarding breast cancer screening are controversial. Please discuss with your primary care provider which strategy is best for you and whether a mammogram is right for you. Your imaging studies and report will be kept on file at [facility] as part of your permanent medical record and are available for your continuing care. Thank you for allowing us to help in meeting your health care needs. Sincerely, Dr. Pierre Interpreting Radiologist [facility] (Normal over 40) [facility] 11-27-2023 Miscellaneous Notes November 27, 2023 PID: [id number] Sadie Velasco [address] [place] [address] Dear Ms. Velasco, We are pleased to inform you that the results of your recent breast imaging exam on 11/27/2023 are normal. Early detection of cancer is very important. We also understand recommendations regarding breast cancer screening are controversial. Please discuss with your primary care provider which strategy is best for you and whether a mammogram is right for you. Your imaging studies and report will be kept on file at [facility] as part of your permanent medical record and are available for your continuing care. Thank you for allowing us to help in meeting your health care needs. Sincerely, Dr. Pierre Interpreting Radiologist [facility] (Normal over 40) documented in this encounter [facility] 11-27-2023 History of Presen t illness Narrative Radiology Service Progress Note PATIENT NAME: Sadie Velasco DATE OF SERVICE: November 27, 2023 TIME: 7:02 AM PATIENT IDENTITY VERIFICATION COMPLETED USING TWO (2) IDENTIFIERS: Name and Date of confirmed by patient verbally. FALL SCREENING: Has the patient had 2 falls in the last year or 1 fall with injury or currently using an Ambulatory Assistive Device (Walker, Cane, Wheelchair, Crutches, etc.)? No PATIENT GENDER DATA: Female. status: : No status: NO. PATIENT RELEVANT IMPLANT DATA REVIEWED: Not Applicable PATIENT PRESENTS WITH AN IMPLANTABLE OR ATTACHED METALLURGIST PROCESS: No RADIOLOGY DEPARTMENT: Mammography PERIPHERAL IV DATA: Not applicable SIGNED BY: RT Domitila(R) November 27, 2023 7:02 AM documented in this encounter [facility] 05-21-2023 Note HNO ID: [id number] Author: Mikey Everett, DO Service: ? Author Type: Physician Type: Progress Notes Filed: 05/22/2023 3:23 AM Note Text: Referring Provider: No ref. provider found Date: May 21, 2023 Chief Complaint: Established Patient Follow-Up (Former [facility] patient, Chest pain. ) HISTORY OF PRESENT ILLNESS: Sadie Velasco is a 62 year old female who presents for Established Patient Follow-Up (Former [facility] patient, Chest pain. ). ALLERGIES Allergen Reactions Hydrocodone-Acetami* GI Upset Codeine Intolerance PAST MEDICAL HISTORY: PAST MEDICAL HISTORY Diagnosis Date Acute [place] ([place] 10/2010 Coronary artery disease Heart murmur History of left heart catheterization 11/08/2010 Patient has atherosclerosis. A long mid LAD about 50% stenosis. RCA and circumflex are noted to be free of disease. Hx of skin cancer, basal cell 2012 Hypothyroidism Migraines Mixed hyperlipidemia Toxic goiter 1999 PAST SURGICAL HISTORY Procedure Laterality Date COLONOSCOPY FLX DX W/COLLJ SPEC WHEN PFRMD 06/20/2013 Colonoscopy EGD 02/16/05 w/ bx PAST SURGICAL HISTORY OF radio active iodine for graves disease PAST SURGICAL HISTORY OF 05/2012 basil cell removal from nose THYROIDECTOMY TOTAL/COMPLETE 04/24/10 [facility] FAMILY HISTORY Problem Relation Age of Onset Hypertension Mother Alzheimer's Disease Mother Mild Alzheimer's Stroke Mother Hypertension Father Heart Failure Maternal Grandfather Heart Paternal Uncle SOCIAL HISTORY: Tobacco Use: .5 packs/day, for 3 years. Quit 05/25/1980. 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 alpha tocopheryl acetate (VITAMIN E) 400 unit capsule Take 400 Units by mouth once daily. levothyroxine 175 mcg tablet Take 125 mcg by mouth daily before breakfast. Hamilton-3 Fatty Acids-Vitamin E 1,000 mg cap Take 1 capsule by mouth. ERGOCALCIFEROL, VITAMIN D2, (VITAMIN D ORAL) Take by mouth. aspirin, enteric coated 81 mg EC tablet Take 81 mg by mouth once daily. calcium Carbonate 300 mg, 750mg, (TUMS) 300 mg (750 mg) chewable tablet take two tablets three times daily as needed MULTIVITAMIN TAB Take one(1) tablet daily. Current Facility-Administered Medications Medication Dose Route Frequency perflutren lipid microspheres 1.3 mL in NaCl (PF) 0.9% 10 mL injection (DEFINITY) INTRAVENOUS DIRECTED PRN sodium chloride 0.9 % (flush) 10 mL (BD POSIFLUSH) 10 mL INTRAVENOUS DIRECTED PRN I have personally reviewed the patients past medical history including social, family, surgical, diagnostics, and medications. REVIEW OF SYSTEMS: Review of Systems Constitutional: Negative for chills and fatigue. Respiratory: Negative for chest tightness and shortness of breath. Cardiovascular: Negative for chest pain, palpitations and leg swelling. Neurological: Negative for dizziness, syncope, weakness and light-headedness. Hematological: Bruises/bleeds easily. Psychiatric/Behavioral: Negative for confusion and hallucinations. Vitals: BP 116/82 (BP Site: Left Arm, BP Position: Sitting, BP Cuff Size: Regular Adult) Pulse 68 Ht 162.6 cm (5' 4) Wt 73.5 kg (162 lb 1.3 oz) LMP 01/17/2013 BMI 27.82 kg/m? PHYSICAL EXAMINATION: BP 116/82 (BP Site: Left Arm, BP Position: Sitting, BP Cuff Size: Regular Adult) Pulse 68 Ht 162.6 cm (5' 4) Wt 73.5 kg (162 lb 1.3 oz) LMP 01/17/2013 BMI 27.82 kg/m? Last 3 Encounter BP Readings: Date: BP: 11/24/2022 110/60 10/13/2022 140/80 11/21/2021 110/80 Last 3 Encounter Pulse Readings: Date: Pulse: 10/13/2022 57 10/04/2021 55 09/28/2020 57 Last 3 Encounter Wt Readings: Date: Wt: 11/24/2022 73.5 kg (162 lb) 10/13/2022 74.4 kg (164 lb) 11/21/2021 74.8 kg (165 lb) Physical Exam Vitals reviewed. Constitutional: General: She is not in acute distress. Appearance: Normal appearance. HENT: Head: Normocephalic. Right Ear: External ear normal. Left Ear: External ear normal. Nose: Nose normal. Mouth/Throat: Mouth: Mucous membranes are moist. Eyes: Extraocular Movements: Extraocular movements intact. Cardiovascular: Rate and Rhythm: Normal rate and regular rhythm. Pulses: Normal pulses. Carotid pulses are 2+ on the right side and 2+ on the left side. Radial pulses are 2+ on the right side and 2+ on the left side. Posterior tibial pulses are 2+ on the right side and 2+ on the left side. Heart sounds: Normal heart sounds. No murmur heard. Pulmonary: Effort: Pulmonary effort is normal. Breath sounds: Normal breath sounds. Abdominal: General: Abdomen is flat. Bowel sounds (more content not included)... [facility] 05-15-2023 Hospital Discharg e instructions Patient Education 05/15/2023 09:14:00 Chest Pain, Uncertain Cause Uncertain Causes of Chest Pain Chest pain can happen for a number of reasons. Sometimes the cause can't be determined. If your condition does not seem serious, and your pain does not appear to be coming from your heart, your healthcare provider may recommend watching it closely. Sometimes the signs of a serious problem take more time to appear. Many problems not related to your heart can cause chest pain. These include: Musculoskeletal. Costochondritis is an inflammation of the tissues around the ribs that can occur from trauma or overuse injuries, or a strain of the muscles of the chest wall Respiratory. Pneumonia, collapsed lung (pneumothorax), or inflammation of the lining of the chest and lungs (pleurisy) Gastrointestinal. Esophageal reflux, heartburn, ulcers, or gallbladder disease Anxiety and panic disorders Nerve compression and inflammation Rare miscellaneous problems such as aortic aneurysm (a swelling of the large artery coming out of the heart) or pulmonary embolism (a blood clot in the lungs) Home care After your visit, follow these recommendations: Rest today and avoid strenuous activity. Take any prescribed medicine as directed. Be aware of any recurrent chest pain and notice any changes Follow-up care Follow up with your healthcare provider if you do not start to feel better within 24 hours, or as advised. Call 911 Call 911 if any of these occur: A change in the type of pain: if it feels different, becomes more severe, lasts longer, or begins to spread into your shoulder, arm, neck, jaw or back Shortness of breath or increased pain with breathing Weakness, dizziness, or fainting Rapid heart beat Crushing sensation in your chest When to seek medical advice Call your healthcare provider right away if any of the following occur: Cough with dark colored sputum (phlegm) or blood Fever of 100.4 F (38 C) or higher, or as directed by your healthcare provider Swelling, pain or redness in one leg [id number] [employer]. [address] [place] [address]. All rights reserved. This information is not intended as a substitute for professional medical care. Always follow your healthcare professional's instructions. Follow Up Care 05/15/2023 07:32:44 With:HAILE COCHRAN MD Address: [address] [place] [address]- When:2-4 days [facility] 05-15-2023 Note Discharge Instructions Thank you for allowing [facility] to assist you with your healthcare needs. The following is important discharge information regarding your hospital visit. Diagnosis from Today's Visit Atypical chest pain Chest pain What to Do Next Instructions from Your Care Team No qualifying data available. Post Acute Orders No qualifying data available. You Need to Schedule the Following Appointments Follow Up with HAILE COCHRAN MD When Within 2-4 days Where: [place] [address]- Allergies codeine (Vomit) Medications Please ask your primary doctor or pharmacist before taking any other medication not listed, including over the counter drugs, herbal medications, vitamins and or supplements as they may interact with your home medications. What How Much When Instructions Last Dose Unchanged ascorbic acid (Vitamin C) Once a day Unchanged aspirin (aspirin 81 mg oral delayed release tablet) 1 tab(s) by mouth Once a day Unchanged famotidine (famotidine 20 mg oral tablet) 1 tab(s) by mouth Once a day Unchanged levothyroxine (levothyroxine 125 mcg (0.125 mg) oral tablet) 1 tab(s) by mouth Once a day Duration: 90 Days Unchanged multivitamin (Multivitamin) 1 tab(s) by mouth Every day Unchanged simvastatin (simvastatin 40 mg oral tablet) 1 tab(s) by mouth Once a day Unchanged ubiquinone (Co-Q10 200 mg oral capsule) 1 cap by mouth Every day Please take this list to your next doctor s visit. Bring all medications you take, including over the counter medications, herbals and other supplements with you to your doctor s visit. Patients and families are reminded to discard old lists and to update any records with all medication providers or retail pharmacies. Education Materials Uncertain Causes of Chest Pain Chest pain can happen for a number of reasons. Sometimes the cause can't be determined. If your condition does not seem serious, and your pain does not appear to be coming from your heart, your healthcare provider may recommend watching it closely. Sometimes the signs of a serious problem take more time to appear. Many problems not related to your heart can cause chest pain. These include: Musculoskeletal. Costochondritis is an inflammation of the tissues around the ribs that can occur from trauma or overuse injuries, or a strain of the muscles of the chest wall Respiratory. Pneumonia, collapsed lung (pneumothorax), or inflammation of the lining of the chest and lungs (pleurisy) Gastrointestinal. Esophageal reflux, heartburn, ulcers, or gallbladder disease Anxiety and panic disorders Nerve compression and inflammation Rare miscellaneous problems such as aortic aneurysm (a swelling of the large artery coming out of the heart) or pulmonary embolism (a blood clot in the lungs) Home care After your visit, follow these recommendations: Rest today and avoid strenuous activity. Take any prescribed medicine as directed. Be aware of any recurrent chest pain and notice any changes Follow-up care Follow up with your healthcare provider if you do not start to feel better within 24 hours, or as advised. Call 911 Call 911 if any of these occur: A change in the type of pain: if it feels different, becomes more severe, lasts longer, or begins to spread into your shoulder, arm, neck, jaw or back Shortness of breath or increased pain with breathing Weakness, dizziness, or fainting Rapid heart beat Crushing sensation in your chest When to seek medical advice Call your healthcare provider right away if any of the following occur: Cough with dark colored sputum (phlegm) or blood Fever of 100.4 F (38 C) or higher, or as directed by your healthcare provider Swelling, pain or redness in one leg [phone] [employer]. [address] [place] [address]. All rights reserved. This information is not intended as a substitute for professional medical care. Always follow your healthcare professional's instructions. Additional Information VACCINATE! IT SAVES LIVES! Members of the community who have not yet received the COVID-19 vaccine and would like to receive it can visit one of [facility] vaccine clinics. There are many vaccine clinic locations within the [facility]. For locations and available times, please visit [email or web address] It is important to note that some COVID mobile vaccine clinics are held outdoors and may be canceled in rainy or stormy conditions. To learn more about pediatric vaccinations (ages 5-11), we invite you to visit the [facility] webpage. [email or web address]/p [email or web address]-Fkrwf-Ijterskrjps-Freq qwgwpj-Oajwb-[email or web address].[email or web address] To learn more about the COVID-19 vaccine, we invite you to visit the CDC website for a list of frequently asked questions. https://www.cdc.gov/coronavirus/ 2019-ncov/vaccines/faq.html [facility] Patient Portal Access Instructions: Stay connected with your healthcare team and access your personal medical information anytime with the [facility] Patient Portal. If you would like a full copy of your medical records please contact the [facility] Medical Records Department Thursday through Thursday between 8a.m. and 4:30p.m. Please follow the directions below to access the portal: 1.Access the email account you provided upon registration to the [facility].2.Look for an invitation email from [facility].3.Open the email and access the invitation link: Accept Invitation to [facility].Fill in the required ramon to create your account. Sign into www.[employer] with your username and password that you created in the above steps to stay up to date. You can then view a summary of results, a summary of your visits, and the ability to download your summaries to your computer or send the information securely to a physician. Remember that your healthcare information is confidential, so carefully consider who you will allow to register on the [facility] Patient Portal for access to your information. You can also access the [facility] Patient Portal on the [employer] regan. Simply click on Health Records under Health Data and then click on the [employer] logo. HOW TO SAFELY DISPOSE OF PRESCRIPTION MEDICATIONS Please use one of the following methods to safely dispose of your unused medications. 1.Use a drug disposal kit: the drug disposal pouch allows you to safely discard your old and unused drugs. Ask your nurse to give you one when you are discharged.2.Visit a local take-back location: Many local pharmacies and police departments have programs that collect old and unwanted prescription drugs. Call your local pharmacy or go to http://Imagiin..Rentobo/3G6Yf2o to find one close to you.3.Make use of household items: Use cat litter or old coffee grounds to dispose medications if other options are not available. Mix your drugs with these household products, seal them in an airtight container and throw it into the garbage. Call [facility]: [phone] to be sure your drugs can be disposed of in this way. Some medicines may require a different approach.4.Never flush your medications down the toilet. IF YOU HAVE BEEN PRESCRIBED AN OPIOIDS FOR PAIN If you have been prescribed an opioid (such as hydrocodone, oxycodone or morphine), it is critical to understand the possible side effects and risks of opioid pain medications. Even when taken as directed, opioids can have several side effects including: Tolerance, meaning you might need to take more of a medication for the same pain relief. Nausea, vomiting and/or constipation. Sleepiness, dizziness, dry mouth, confusion, depression or itching. Physical dependence, meaning you have withdrawal symptoms when a medication is stopped ? this can develop within a few days. KNOW YOUR RESPONSIBILITIES It is important to know exactly how much and how often to take the opioid pain medications you are prescribed. Never take opioids in higher amounts or more often than prescribed. Do not combine opioids with alcohol or other drugs that cause drowsiness, such as benzodiazepines, also known as benzos, including diazepam and alprazolam, muscle relaxants or sleep aids. Never sell or share prescription opioids. This is illegal. Store opioids in a secure place and out of reach of others (including children, family, friends and visitors). The last page(s) of this document has been signed and retained as a CHART COPY Signatures Patient Education Materials Chest Pain, Uncertain Cause Medication Leaflets My discharge plan and instructions have been reviewed and explained to me and I,SADIE VELASCO understand my current condition and have read and understand these discharge instructions. I have received a written copy of the plan/instructions. If I have questions, I am aware that I should contact my doctor. Patient/It Infrastructure Specialist Signature: Date/Time: Relationship to Patient: Witness Name/Signature: Date/Time: [facility] 05-15-2023 Note ORIGINAL EXAMINATION: ONE XRAY VIEW OF THE CHEST05/15/2023 8:23 am COMPARISON: None available at time of dictation. HISTORY: ORDERING SYSTEM PROVIDED HISTORY: Reason for Exam: chest pain FINDINGS: The cardiomediastinal contours are within normal limits. No focal consolidation or pulmonary edema. No pneumothorax or large volume pleural effusion. No acute osseous abnormalities. Degenerative changes of the spine. IMPRESSION: No acute radiographic findings. I have personally reviewed the images of this examination and agree with the resident's findings and interpretation. Interpreted by: Krystyna Strong MD Preliminary Report By: Savannah Orr Electronically signed By Krystyna Strong MD Dictated Date: 05/15/2023 8:25:31 AM Prelim Date: 05/15/2023 8:27:54 AM Sign Date: 05/15/2023 8:27:54 AM Ordering Provider: SHUBHAM OBANDO [facility] 05-15-2023 Note Sinus rhythm Probable left atrial enlargement Electronic Signature: SHUBHAM OBANDO MD 05/15/2023 08:11:45 [facility] 11-26-2022 Miscellaneous Notes November 27, 2022 PID: [id number] Sadie Velasco [address] [place] [address] Dear Ms. Velasco, We are pleased to inform you that the results of your recent breast imaging exam on 11/24/2022 are normal. Your mammogram demonstrates that you have dense breast tissue, which could hide abnormalities. Dense breast tissue, in and of itself, is a relatively common condition. Therefore, this information is not provided to cause undue concern; rather, it is to raise your awareness and promote discussion with your health care provider regarding the presence of dense breast tissue in addition to other risk factors. Early detection of cancer is very important. We also understand recommendations regarding breast cancer screening are controversial. Please discuss with your primary care provider which strategy is best for you and whether a mammogram is right for you. Your imaging studies and report will be kept on file at [facility] as part of your permanent medical record and are available for your continuing care. Thank you for allowing us to help in meeting your health care needs. Sincerely, Dr. Jansen Interpreting Radiologist [facility] (Normal over 40) documented in this encounter [facility] 11-24-2022 History of Presen t illness Narrative Radiology Service Progress Note PATIENT NAME: Sadie Velasco DATE OF SERVICE: November 24, 2022 TIME: 8:48 AM PATIENT IDENTITY VERIFICATION COMPLETED USING TWO (2) IDENTIFIERS: Name and Date of confirmed by patient verbally. FALL SCREENING: Has the patient had 2 falls in the last year or 1 fall with injury or currently using an Ambulatory Assistive Device (Walker, Cane, Wheelchair, Crutches, etc.)? No PATIENT GENDER DATA: Female. status: : No status: NO. PATIENT RELEVANT IMPLANT DATA REVIEWED: Not Applicable RADIOLOGY DEPARTMENT: Mammography PERIPHERAL IV DATA: Not applicable SIGNED BY: Doreen Green Guardly November 24, 2022 8:48 AM documented in this encounter [facility] 11-24-2022 History of Presen t illness Narrative Sadie is a 62 year old who presents for an annual gynecologic exam without complaints. Postmenopausal: Yes since age 52 HRT use: No. Last Pap: 12/02/2021 normal HPV: 11/27/2021 negative History of abnormal pap: No Last mammogram: 2022 pending History of abnormal mammogram: No Sexually active: Yes Pain with intercourse: No Postcoital bleeding: No Vaginal dryness: No OB History T0 L1 SAB0 IAB0 Ectopic0 Multiple0 Live Births0 Comment: 1 vaginal delivery [employer] History LMP: 01/17/2013, Postmenopausal Age at Menarche: Age at First : Age at Menopause: [employer] History Comments: Sexual Activity: Yes; Male Contraception: Vasectomy PAST MEDICAL HISTORY Diagnosis Date [place] ([place] 10/2010 Coronary artery disease Heart murmur History of left heart catheterization 11/08/2010 Patient has atherosclerosis. A long mid LAD about 50% stenosis. RCA and circumflex are noted to be free of disease. Hx of skin cancer, basal cell 2012 Hypothyroidism Migraines Mixed hyperlipidemia Toxic goiter 1999 PAST SURGICAL HISTORY Procedure Laterality Date COLONOSCOPY FLX DX W/COLLJ SPEC WHEN PFRMD 06/20/2013 Colonoscopy EGD 02/16/05 w/ bx PAST SURGICAL HISTORY OF radio active iodine for graves disease PAST SURGICAL HISTORY OF 05/2012 basil cell removal from nose THYROIDECTOMY TOTAL/COMPLETE 04/24/10 [facility] FAMILY HISTORY Problem Relation Age of Onset Hypertension Mother Alzheimer's Disease Mother Mild Alzheimer's Stroke Mother Hypertension Father Heart Failure Maternal Grandfather Heart Paternal Uncle SOCIAL HISTORY Social History Tobacco Use Smoking status: Former Packs/day: 0.50 Years: 3.00 Pack years: 1.50 Types: Cigarettes Quit date: 1980 Years since quittin.5 Smokeless tobacco: Never Vaping Use Vaping Use: Never used Substance Use Topics Alcohol use: No Drug use: No REVIEW OF SYSTEMS Abdomen: No abdominal pain, nausea, vomiting, diarrhea, or constipation. No bloating, early satiety, indigestion, or increased flatulence. Bladder: No dysuria, gross hematuria, urinary frequency, urinary urgency, or incontinence Breast: No breast lumps, nipple d/c, overlying skin changes, redness or skin retraction Allergies and current medication updated:Yes EXAM: Ht 5' 4.75 (1.65m) Wt 162 lb (73.5kg) LMP 01/17/2013 BMI 27.16 kg/(m^2). GENERAL: pleasant, female in no apparent distress HEENT: Normocephalic, atraumatic, mucus membranes moist, and no lesions NECK: Supple, full range of motion, no adenopathy, and thyroid normal DERMATOLOGY: Normal, without lesions, non-icteric, and non-hirsute BREAST: soft, non-tender, symmetric, no dominant mass, normal nipple-areolar complex, no lymphadenopathy, and no nipple discharge CHEST: Normal inspiratory effort ABDOMEN: soft, non-tender, and no masses PELVIC: external genitalia normal, normal Bartholin's glands, urethra, [place]'s glands, no vulvar lesions, no cervical lesions, good vaginal support, physiologic discharge present, normal appearing perineal body and perianal region BIMANUAL: uterus normal size, shape and consistency, no adnexal masses, and non-tender RECTOVAGINAL: deferred. NEURO: alert and oriented x3,exam grossly non-focal EXTREMITIES: normal ASSESSMENT/PLAN: 1) Health maintenance: Pap/HPV up to date. Mammogram up to date Nutrition, exercise and routine health maintenance exams reviewed. Calcium/Vitamin D supplementation information provided. Colon cancer screening: up to date with screening BMD: N/A 2) Follow up one year or sooner as needed Deanna Johns APRN.RAINER documented in this encounter [facility] 12-09-2021 Miscellaneous Notes Pt states at her last OV she was told to decrease her bystolic to 3 times a week and if her BP remained ok to stop it all together. Pt states she has been completely off of it for 2 weeks and her BP is running fine.. 124/72 HR 69 115/75 HR 58 112/74 HR 78 125/78 HR 57 Pt just wanted you to be aware. documented in this encounter [facility] 11-21-2021 History of Presen t illness Narrative Radiology Service Progress Note PATIENT NAME: Sadie Velasco DATE OF SERVICE: November 21, 2021 TIME: 8:22 AM PATIENT IDENTITY VERIFICATION COMPLETED USING TWO (2) IDENTIFIERS: Name and Date of confirmed by patient verbally. FALL SCREENING: Has the patient had 2 falls in the last year or 1 fall with injury or currently using an Ambulatory Assistive Device (Walker, Cane, Wheelchair, Crutches, etc.)? No PATIENT GENDER DATA: Female. status: : No status: NO. PATIENT RELEVANT IMPLANT DATA REVIEWED: Not Applicable RADIOLOGY DEPARTMENT: Mammography PERIPHERAL IV DATA: Not applicable SIGNED BY: Fred GarciaGreen Farms Energy November 21, 2021 8:22 AM documented in this encounter [facility] 11-21-2021 History of Presen t illness Narrative Sadie is a 61 year old who presents for an annual gynecologic exam without complaints. Postmenopausal: Yes since age 52 HRT use: No. Last Pap: 07/04/2016 normal HPV: 07/03/2016 negative History of abnormal pap: No Last mammogram: 2020 normal History of abnormal mammogram: No Sexually active: Yes History of STDS: None History of authorization coordinator malignancy: none Pain with intercourse: No Postcoital bleeding: No OB History T0 L1 SAB0 IAB0 Ectopic0 Multiple0 Live Births0 Comment: 1 vaginal delivery [employer] History LMP: 01/17/2013, Postmenopausal Age at Menarche: Age at First : Age at Menopause: [employer] History Comments: Sexual Activity: Yes; Male Contraception: Vasectomy PAST MEDICAL HISTORY Diagnosis Date Acute gastritis Acute [place] (H[place]) 10/2010 Coronary artery disease Esophagitis Heart murmur Hernia of other specified sites of abdominal cavity without mention of obstruction or gangrene hiatal History of EKG 03/31/2018 History of left heart catheterization 11/08/2010 Patient has atherosclerosis. A long mid LAD about 50% stenosis. RCA and circumflex are noted to be free of disease. Hx of skin cancer, basal cell 2012 Hypothyroidism Mixed hyperlipidemia Nodule 04/24/2010 FOLLICULAR Other forms of migraine Toxic diffuse goiter without mention of thyrotoxic crisis or storm 1999 PAST SURGICAL HISTORY Procedure Laterality Date COLONOSCOPY FLX DX W/COLLJ SPEC WHEN PFRMD 06/20/2013 Colonoscopy EGD 02/16/05 w/ bx PAST SURGICAL HISTORY OF radio active iodine for graves disease PAST SURGICAL HISTORY OF 05/2012 basil cell removal from nose THYROIDECTOMY TOTAL/COMPLETE 04/24/10 [facility] FAMILY HISTORY Problem Relation Age of Onset Hypertension Mother Alzheimer's Disease Mother Mild Alzheimer's Stroke Mother Hypertension Father Heart Failure Maternal Grandfather Heart Paternal Uncle SOCIAL HISTORY Social History Tobacco Use Smoking status: Former Smoker Packs/day: 0.50 Years: 3.00 Pack years: 1.50 Types: Cigarettes Quit date: 1980 Years since quittin.5 Smokeless tobacco: Never Used Vaping Use Vaping Use: Never used Substance Use Topics Alcohol use: No Drug use: No REVIEW OF SYSTEMS Abdomen: No abdominal pain, nausea, vomiting, diarrhea, or constipation. No bloating, early satiety, indigestion, or increased flatulence. Bladder: No dysuria, gross hematuria, urinary frequency, urinary urgency. Positive for stress incontinence Breast: No breast lumps, nipple d/c, overlying skin changes, redness or skin retraction Allergies and current medication updated:Yes EXAM: BP 110/80 Ht 5' 4 (1.63m) Wt 165 lb (74.8kg) LMP 01/17/2013 BMI 28.31 kg/(m^2). GENERAL: pleasant, female in no apparent distress HEENT: Normocephalic, atraumatic, mucus membranes moist and no lesions NECK: Supple, full range of motion, no adenopathy. Thyroidectomy 2009 DERMATOLOGY: Normal, without lesions, non-icteric and non-hirsute BREAST: soft, non-tender, symmetric, no dominant mass, normal nipple-areolar complex, no lymphadenopathy and no nipple discharge CHEST: Normal inspiratory effort ABDOMEN: soft, non-tender and no masses PELVIC: external genitalia normal, normal Bartholin's glands, urethra, [place]'s glands, no vulvar lesions, no cervical lesions, good vaginal support, physiologic discharge present, normal appearing perineal body and perianal region BIMANUAL: uterus normal size, shape and consistency, no adnexal masses, non-tender and no cervical motion tenderness RECTOVAGINAL: deferred. NEURO: alert and oriented x3,exam grossly non-focal EXTREMITIES: normal ASSESSMENT/PLAN: 1) Health maintenance: Pap done with HPV. Mammogram ordered Nutrition, exercise and routine health maintenance exams reviewed. Calcium/Vitamin D supplementation information provided. Colonoscopy- up to date- followed by PCP 2) Follow up one year or sooner as needed Kell Russell APRN.CNM documented in this encounter [facility] 10-04-2021 History of Presen t illness Narrative Referring Provider: Mikey Everett DO Date: October 04, 2021 Chief Complaint: Established Patient Follow-Up (1 year follow up for CAD) HISTORY OF PRESENT ILLNESS: Sadie Velasco is a 60 year old female who presents for Established Patient Follow-Up (1 year follow up for CAD). ALLERGIES Allergen Reactions Hydrocodone-Acetami* GI Upset Codeine Intolerance PAST MEDICAL HISTORY: PAST MEDICAL HISTORY Diagnosis Date Acute gastritis Acute [place] ([place]) 10/2010 Coronary artery disease Esophagitis Heart murmur Hernia of other specified sites of abdominal cavity without mention of obstruction or gangrene hiatal History of EKG 03/31/2018 History of left heart catheterization 11/08/2010 Patient has atherosclerosis. A long mid LAD about 50% stenosis. RCA and circumflex are noted to be free of disease. Hx of skin cancer, basal cell 2012 Hypothyroidism Mixed hyperlipidemia Nodule 04/24/2010 FOLLICULAR Other forms of migraine Toxic diffuse goiter without mention of thyrotoxic crisis or storm 1999 PAST SURGICAL HISTORY Procedure Laterality Date COLONOSCOPY FLX DX W/COLLJ SPEC WHEN PFRMD 06/20/2013 Colonoscopy EGD 02/16/05 w/ bx PAST SURGICAL HISTORY OF radio active iodine for graves disease PAST SURGICAL HISTORY OF 05/2012 basil cell removal from nose THYROIDECTOMY TOTAL/COMPLETE 04/24/10 [facility] FAMILY HISTORY Problem Relation Age of Onset Hypertension Mother Alzheimer's Disease Mother Mild Alzheimer's Stroke Mother Hypertension Father Heart Paternal Uncle SOCIAL HISTORY: Tobacco Use: for 3 years. Quit 05/25/1980. 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 simvastatin (ZOCOR) 40 mg tablet TAKE 1 TABLET BY MOUTH EVERY DAY IN THE EVENING coenzyme Q10 (COENZYME Q-10) 100 mg cap capsule Take 100 mg by mouth once daily. alpha tocopheryl acetate (VITAMIN E) 400 unit capsule Take 400 Units by mouth once daily. levothyroxine 175 mcg tablet Take 125 mcg by mouth daily before breakfast. [place]-3 Fatty Acids-Vitamin E (FISH OIL) 1,000 mg cap Take 1 capsule by mouth. ERGOCALCIFEROL, VITAMIN D2, (VITAMIN D ORAL) Take by mouth. aspirin, enteric coated 81 mg EC tablet Take 81 mg by mouth once daily. calcium Carbonate 300 mg, 750mg, (TUMS E-X) 300 mg (750 mg) ORAL chewable tablet take two tablets three times daily as needed MULTIVITAMIN TAB Take one(1) tablet daily. No current facility-administered medications for this visit. I have personally reviewed the patients past medical history including social, family, surgical, diagnostics, and medications./AB REVIEW OF SYSTEMS: Review of Systems Constitutional: Negative for chills and fatigue. Respiratory: Negative for chest tightness and shortness of breath. Cardiovascular: Negative for chest pain, palpitations and leg swelling. Neurological: Negative for dizziness, syncope, weakness and light-headedness. Hematological: Does not bruise/bleed easily. Psychiatric/Behavioral: Negative for confusion and hallucinations. Vitals: BP 144/92 Pulse (!) 55 Ht 162.6 cm (5' 4) Wt 74.4 kg (164 lb) LMP 01/17/2013 BMI 28.15 kg/m PHYSICAL EXAMINATION: BP 144/92 Pulse (!) 55 Ht 162.6 cm (5' 4) Wt 74.4 kg (164 lb) LMP 01/17/2013 BMI 28.15 kg/m Last 3 Encounter BP Readings: Date: BP: 11/19/2020 122/74 09/28/2020 122/86 11/18/2019 116/82 Last 3 Encounter Pulse Readings: Date: Pulse: 09/28/2020 57 Last 3 Encounter Wt Readings: Date: Wt: 11/19/2020 72.1 kg (159 lb) 09/28/2020 73 kg (161 lb) 11/18/2019 76.2 kg (168 lb) Physical Exam Vitals reviewed. Constitutional: General: She is not in acute distress. Appearance: Normal appearance. HENT: Head: Normocephalic. Right Ear: External ear normal. Left Ear: External ear normal. Nose: Nose normal. Mouth/Throat: Mouth: Mucous membranes are moist. Eyes: Extraocular Movements: Extraocular movements intact. Cardiovascular: Rate and Rhythm: Normal rate and regular rhythm. Pulses: Normal pulses. Carotid pulses are 2+ on the right side and 2+ on the left side. Radial pulses are 2+ on the right side and 2+ on the left side. Posterior tibial pulses are 2+ on the right side and 2+ on the left side. Heart sounds: Normal heart sounds. No murmur heard. Pulmonary: Effort: Pulmonary effort is normal. Breath sounds: Normal breath sounds. Abdominal: General: Abdomen is flat. Bowel sounds are normal. Palpations: Abdomen is soft. Tenderness: There is no abdominal tenderness. Musculoskeletal: General: Normal range of motion. Cervical back: Normal range of motion. Right lower leg: No edema. Left lower leg: No edema. Skin: General: Skin is warm. Capillary Refill: Capillary refill takes 2 to 3 seconds. Findings: No rash or wound. Neurological: General: No focal deficit present. Mental Status: She is alert and oriented to person, place, and time. Mental status is at baseline. Coordination: Coordination is intact. Psychiatric: Mood and Affect: Mood normal. Thought Content: Thought content normal. Judgment: Judgment normal. LABS: No results found for: GLUC, K, NA, CHLOR, CO2, CREAT, BUN, ANION, CA, TPROT, ALB, TBILI, ALKPHOS, AST, ALT No results found for: HB, HCT, WBC No results found for: CHOL, HDL, LDL, TG EKG: DIAGNOSTIC TEST RESULTS: Recent Results (from the past 24 hour(s)) ECG B/O W INTERP (MED OFFICE) Collection Time: 10/04/21 12:00 AM Impression Sinus Bradycardia 55 bpm ASSESSMENT/PLAN: 1. Essential hypertension, benign - ICD9: 401.1, ICD10: I10 (primary diagnosis) Patient's blood pressure in the office today was recorded as 144/92. Target systolic BP 140 or less and diastolic BP 90 or less. EKG done in office today. PATIENTS BP WAS HIGH AND HER PULSE WAS SLIGHTLY LOW AT 55 BPM. WE WILL HAVE HER DECREASE HER BYSTOLIC TO M-W-F FOR 3 WEEKS THEN STOP THE MEDICATION. CALL IN 3 WEEKS TO LET US KNOW HOW SHE IS DOING. 2. Mixed hyperlipidemia - ICD9: 272.2, ICD10: E78.2 Patient is currently taking Simvastatin 40 mg every day. We do not have patients last FLP on file.. Lipids are managed by Dr Everett. 3. Coronary artery disease involving [place] coronary artery of [place] heart with angina pectoris (HCC) - ICD9: 414.01, 413.9, ICD10: I25.119 Chronic Condition. Patient denies symptoms of chest pain, pressure, tightness or fullness. 4. Heart murmur - ICD9: 785.2, ICD10: R01.1 Patient has a history of Heart Murmur. Stable. 5. History of left heart catheterization - ICD9: V15.1, ICD10: Z98.890 Patient had Cath done on 11/08/10 and it showed 6. Former smoker - ICD9: V15.82, ICD10: Z87.891 Patient was a 0.5 pack smoker until 1980 when she stopped smoking. Patient was a smoker for 3 years. ISylvia MA, scribing for Dr. Mieky Everett. Follow up in: 1 year follow up for CAD Prior to entering the room, I reviewed the last progress note including the diagnosis and plan of action. When available, I then reviewed the last heart catheterization, stress test, echocardiogram and EKG. I proceeded to review the medial therapy and any side effects the patient may have had in the past. I was able to look at the past several EKG's. A new EKG was performed today and interpretation was noted. I reviewed this interpretation with the patient, and the family when available, and compared it to the previous EKG's that we have in the medical record. Since my office visit was carried out with a scribe, while in the exam room I was able to devote one hundred percent of my time in [id number] conversation with the patient. I answered all the questions and explained the diagnosis of stable angina . Greater that 51% of my time was spent with [id number] conversation with the patient. I have discussed the recommended treatment, alternative therapies and other options in detail. I've discussed the best benefit and side effects of these recommended treatments. I've attempted to answer all the questions to the patient's satisfaction and understanding. With approval, we would recommend an pursue the current therapy such as no change . After leaving the exam room, I went back into the patient's chart and coordinated care with my nurse ordering the proper testing and medicinal changes. Letter was performed with voice recognition algorithms and sent to the referring team. The chart was completed. Including the pre-exam, exam and post-exam, the total time spent in the patient's management was greater than 15 minutes I, Dr. Mikey Everett, have reviewed and agree with the information in the medical record. Mikey Everett DO documented in this encounter [facility] 09-07-2019 History of Past i llness Narrative Problem Noted Date Resolved Date Stable angina 09/07/2019 09/30/2022 documented as of this encounter (statuses as of 10/07/2022) [facility] History of Past illness Narrative* Problem Noted Date Resolved Date Stable angina 09/07/2019 09/30/2022 documented as of this encounter (statuses as of 11/24/2022) [facility] History of Past illness Narrative* Problem Noted Date Resolved Date Stable angina 09/07/2019 09/30/2022 documented as of this encounter (statuses as of 11/28/2022) [facility] History of Past illness Narrative* Problem Noted Date Diagnosed Date Resolved Date Stable angina 09/07/2019 09/30/2022 documented as of this encounter (statuses as of 03/29/2023) [facility]ments Appointment Date:12/05/2021 07:00:00 AM Scheduled Provider:HAILE COCHRAN MD Location:[facility] Appointment Type:PC OV [facility] Evaluation + Plan note Future Appointments Appointment Date:12/05/2022 07:30:00 AM Scheduled Provider:HAILE COCHRAN MD Location:[facility] Appointment Type:PC OV [facility] Evaluation note* Diagnosis Essential hypertension, benign- Primary Mixed hyperlipidemia Coronary artery disease involving [place] coronary artery of [place] heart with angina pectoris (HCC) Heart murmur Undiagnosed cardiac murmurs History of left heart catheterization Former smoker Personal history of tobacco use, presenting hazards to health [facility] Diagnosis Encounter for gynecological examination (general) (routine) without abnormal findings Encounter for screening for human papillomavirus (HPV) Special screening examination for human papillomavirus (HPV) Pap smear for cervical cancer screening Screening for malignant neoplasm of the cervix Encounter for screening mammogram for breast cancer [facility] Encounter for screening [facility]ogram for [facility] cancer [facility] Diagnosis Encounter for gynecological examination (general) (routine) without abnormal findings- Primary Encounter for screening mammogram for breast cancer [facility] Diagnosis Encounter for screening mammogram for breast cancer [facility] Diagnosis Encounter for screening mammogram for breast cancer [facility] Diagnosis Encounter for gynecological examination (general) (routine) without abnormal findings- Primary Encounter for screening mammogram for breast cancer Dense breast tissue Encounter for screening for osteoporosis Special screening for osteoporosis [facility] Diagnosis Encounter for gynecological examination (general) (routine) without abnormal findings- Primary Encounter for screening mammogram for breast cancer Encounter for screening for osteoporosis Special screening for osteoporosis Unspecified menopausal and perimenopausal disorder [facility] Diagnosis Encounter for screening mammogram for breast cancer Dense breast tissue [facility] N[facility] No data available for this section [facility] Hospital Discharge instructions No data available for this section [facility] Progress note No data available for this section [facility] Reason for referral (narrative)* Diagnostic Procedure Only (Routine) - Pending Review Specialty Diagnoses / Procedures Referred By Britton t Referred To Contact [facility] Diagnoses Encounter for screening mammogram for breast cancer Procedures BRIANDA SCREENING SCREENING MAMMOGRAPHY BI 2-VIEW BREAST INC CAD Kell Russell APRN.CNM [address] [place] [address] [facility] [address] [place] [address] Referral ID Status Reason Start Date Expiration Date Visits Requested Visits Authorized [id number] Pending Review Auto-Generat ed Referral 11/21/2021 12/21/2022 1 1 [facility] for referral (narrative)* Diagnostic Procedure Only (Routine) - Pending Review Specialty Diagnoses / Procedures Referred By Britton t Referred To Contact [facility] Diagnoses Encounter for screening mammogram for breast cancer Procedures BRIANDA SCREENING SCREENING MAMMOGRAPHY BI 2-VIEW BREAST INC CAD Deanna Johns APRN.BLUNGER [address] [place] [address] [facility] [address] [place] [address] Referral ID Status Reason Start Date Expiration Date Visits Requested Visits Authorized [id number] Pending Review Auto-Generat ed Referral 11/24/2022 12/24/2023 1 1 [facility] for referral (narrative)* Diagnostic Procedure Only (Routine) - Closed Specialty Diagnoses / Procedures Referred By Julietteac t Referred To Contact [facility] Diagnoses Encounter for screening mammogram for breast cancer Procedures BRIANDA SCREENING SCREENING MAMMOGRAPHY BI 2-VIEW BREAST INC CAD Kell Russell APRN.CNM [address] [place] [address] [facility] [address] [place] [address] Referral ID Status Reason Start Date Expiration Date V isits Requested Visits Authorized [id number] Closed Auto-Generate d Referral 11/21/2021 12/21/2022 1 1 [facility] for referral (narrative)* Diagnostic Procedure Only (Routine) - Closed Specialty Diagnoses / Procedures Referred By Contac t Referred To Contact [facility] Diagnoses Encounter for screening mammogram for breast cancer Procedures BRIANDA SCREENING SCREENING MAMMOGRAPHY BI 2-VIEW BREAST INC CAD Deanna Johns APRN.BLUNGER [address] [place] [address] [facility] [address] [place] [address] Referral ID Status Reason Start Date Expiration Date V isits Requested Visits Authorized [id number] Closed Auto-Generate d Referral 11/24/2022 12/24/2023 1 1 [facility] for referral (narrative)* Diagnostic Procedure Only (Routine) - Authorized Specialty Diagnoses / Procedures Referred By Contac t Referred To Contact [facility] Diagnoses Encounter for screening for osteoporosis Procedures DXA-AXIAL SKELETON Deanna Johns APRN.BLUNGER [address] [place] [address] [place] [id number] Referral ID Status Reason Start Date Expiration Date Visits Requested Visits Authorized [id number] Authorized Auto-Generat ed Referral 12/03/2023 01/01/2025 1 1 * Diagnostic Procedure Only (Routine) - Authorized Specialty Diagnoses / Procedures Referred By Contac t Referred To Contact [facility] Diagnoses Encounter for screening mammogram for breast cancer Dense breast tissue Procedures BRIANDA SCREENING W SHREYA SCREENING DIGITAL BREAST TOMOSYNTHESIS BI SCREENING MAMMOGRAPHY BI 2-VIEW BREAST INC CAD Deanna Johns APRN.BLUNGER [address] [place] [address] [facility] [address] [place] [address] Referral ID Status Reason Start Date Expiration Date Visits Requested Visits Authorized [id number] Authorized Auto-Generat ed Referral 12/03/2023 01/01/2025 1 1 [facility] for visit Narrative* Diagnostic Procedure Only (Routine) - Closed Specialty Diagnoses / Procedures Referred By Contprice t Referred To Contact [facility] Diagnoses Encounter for screening mammogram for breast cancer Procedures BRIANDA SCREENING SCREENING MAMMOGRAPHY BI 2-VIEW BREAST INC CAD Kell Russell APRN.CNM [address] [place] [address] [facility] [address] [place] [address] Referral ID Status Reason Start Date Expiration Date V isits Requested Visits Authorized [id number] Closed Auto-Generate d Referral 11/21/2021 12/21/2022 1 1 [facility] for visit Narrative* Diagnostic Procedure Only (Routine) - Closed Specialty Diagnoses / Procedures Referred By Britton t Referred To Contact [facility] Diagnoses Encounter for screening mammogram for breast cancer Procedures BRIANDA SCREENING SCREENING MAMMOGRAPHY BI 2-VIEW BREAST INC CAD Deanna Johns APRN.BLUNGER [address] [place] [address] [facility] [address] [place] [address] Referral ID Status Reason Start Date Expiration Date V isits Requested Visits Authorized [id number] Closed Auto-Generate d Referral 11/24/2022 12/24/2023 1 1 [facility] for visit Narrative* Diagnostic Procedure Only (Routine) - Closed Specialty Diagnoses / Procedures Referred By Britton zuñiga Referred To Contact [facility] Diagnoses Encounter for screening mammogram for breast cancer Dense breast tissue Procedures BRIANDA SCREENING W SHREYA SCREENING DIGITAL BREAST TOMOSYNTHESIS BI SCREENING MAMMOGRAPHY BI 2-VIEW BREAST INC CAD Deanna Johns APRN.BLUNGER [address] [place] [address] Phone: tel: fax: [facility] [address] [place] [address] Referral ID Status Reason Start Date Expiration Date V isits Requested Visits Authorized [id number] Closed Auto-Generate d Referral 12/03/2023 01/01/2025 1 1 [facility] Summary Purpose Family History No Family History Records Found No data available for this section No Family History Records FoundNo Family History Records FoundNo Family History Records FoundNo Family History Records FoundNo Family History Records Found Advance Directives No Advanced Directives Records FoundNo Advanced Directives Records FoundNo Advanced Directives Records FoundNo Advanced Directives Records FoundNo Advanced Directives Records FoundNo Advanced Directives Records Found Additional Source Comments INFORMATION SOURCE (unrecogn ized section and content) DATE CREATED AUTHOR 02/21/2020 [facility] DATE CREATED AUTHOR AUTHOR'S ORGANIZ ATION 05/23/2023 [facility] (ID) DATE CREATED AUTHOR AUTHOR'S ORGANIZ ATION 05/24/2023 [facility] DATE CREATED AUTHOR AUTHOR'S ORGANIZ ATION 02/13/2024 [facility] DATE CREATED AUTHOR AUTHOR'S ORGANIZ ATION 12/13/2024 [facility] DATE CREATED AUTHOR AUTHOR'S ORGANIZ ATION 12/15/2024 [facility] Source Comments (unrecognize d section and content) In the event this informatio n is protected by the Federal Confidentiality of Alcohol and Drug Abuse Patient Records regulations: The Federal rules restrict any use of the information to criminally investigate or prosecute any alcohol or drug abuse patient.[facility] the event this information is protected by the Federal Confidentiality of Alcohol and Drug Abuse Patient Records regulations: The Federal rules restrict any use of the information to criminally investigate or prosecute any alcohol or drug abuse patient.[facility] the event this information is protected by the Federal Confidentiality of Alcohol and Drug Abuse Patient Records regulations: The Federal rules restrict any use of the information to criminally investigate or prosecute any alcohol or drug abuse patient.[facility] the event this information is protected by the Federal Confidentiality of Alcohol and Drug Abuse Patient Records regulations: The Federal rules restrict any use of the information to criminally investigate or prosecute any alcohol or drug abuse patient.[facility] the event this information is protected by the Federal Confidentiality of Alcohol and Drug Abuse Patient Records regulations: The Federal rules restrict any use of the information to criminally investigate or prosecute any alcohol or drug abuse patient.[facility] the event this information is protected by the Federal Confidentiality of Alcohol and Drug Abuse Patient Records regulations: The Federal rules restrict any use of the information to criminally investigate or prosecute any alcohol or drug abuse patient.[facility] the event this information is protected by the Federal Confidentiality of Alcohol and Drug Abuse Patient Records regulations: The Federal rules restrict any use of the information to criminally investigate or prosecute any alcohol or drug abuse patient.[facility] HospitalIn the event this information is protected by the Federal Confidentiality of Alcohol and Drug Abuse Patient Records regulations: The Federal rules restrict any use of the information to criminally investigate or prosecute any alcohol or drug abuse patient.[facility] HospitalIn the event this information is protected by the Federal Confidentiality of Alcohol and Drug Abuse Patient Records regulations: The Federal rules restrict any use of the information to criminally investigate or prosecute any alcohol or drug abuse patient.[facility] HospitalIn the event this information is protected by the Federal Confidentiality of Alcohol and Drug Abuse Patient Records regulations: The Federal rules restrict any use of the information to criminally investigate or prosecute any alcohol or drug abuse patient.[facility] HospitalIn the event this information is protected by the Federal Confidentiality of Alcohol and Drug Abuse Patient Records regulations: The Federal rules restrict any use of the information to criminally investigate or prosecute any alcohol or drug abuse patient.[facility] HospitalIn the event this information is protected by the Federal Confidentiality of Alcohol and Drug Abuse Patient Records regulations: The Federal rules restrict any use of the information to criminally investigate or prosecute any alcohol or drug abuse patient.[facility] HospitalIn the event this information is protected by the Federal Confidentiality of Alcohol and Drug Abuse Patient Records regulations: The Federal rules restrict any use of the information to criminally investigate or prosecute any alcohol or drug abuse patient.[facility] Reason for Visit (unrecogniz ed section and content) Reason Comments Established Patient Follow-Up 1 year fol low up for CAD Reason Comments Well Woman Reason Comments Blood Pressure Reason Comments Yearly Exam With Mammogram Reason Comments Yearly Exam Reason Comments Well Woman Care Teams (unrecognized sec tion and content) Guest Services Agent Relationship Specialty Start Date End Date Haile Cochran MD [address] [place] [address] PCP - General Family Practice 04/25/10 Guest Services Agent Relationship Specialty Start Date End Date Haile Cochran MD [address] [place], [place] [id number] PCP - General Family Practice 04/25/10 Guest Services Agent Relationship Specialty Start Date End Date Haile Cochran MD [address] [place] [address] PCP - General Family Practice 04/25/10 Guest Services Agent Relationship Specialty Start Date End Date Haile Cochran MD [address] [place], [place] [id number] PCP - General Family Medicine 04/25/10 Guest Services Agent Relationship Specialty Start Date End Date Haile Cochran MD [address] [place] [address] PCP - General Family Medicine 04/25/10 Guest Services Agent Relationship Specialty Start Date End Date Haile Cochran MD [address] [place], [place] [id number] PCP - General Family Medicine 04/25/10 Guest Services Agent Relationship Specialty Start Date End Date Haile Cochran MD [address] [place] [address] PCP - General Family Medicine 04/25/10 Guest Services Agent Relationship Specialty Start Date End Date Haile Cochran MD [address] [place] [address] PCP - General Family Medicine 04/25/10 Guest Services Agent Relationship Specialty Start Date End Date Haile Cochran MD [address] [place] [id number] PCP - General Family Medicine 04/25/10 Guest Services Agent Relationship Specialty Start Date End Date Haile Cochran MD [address] [place] [id number] PCP - General Family Medicine 04/25/10 Guest Services Agent Relationship Specialty Start Date End Date Haile Cochran MD [facility] [address] [place] [id number] PCP - General Family Medicine 04/25/10 Guest Services Agent Relationship Specialty Start Date End Date Haile Cochran MD [address] [place] [id number] PCP - General Family Medicine 04/25/10 Care Team (unrecognized sect ion and content) Care Team Personnel Name: HAILE COCHRAN MD Position: P4 Physician - Primary Care Med Service: Active Provider Member Role: Primary Care Physician Address: Address: [facility] [place] [address]- [place] Care Team Related Persons Name: ANIKET BERGER Address: [address] [id number] FOR RECORDS PERTAINING TO PATIENTS WHO ARE OR HAVE BEEN ENROLLED IN A CHEMICAL DEPENDENCY/SUBSTANCEABUSE PROGRAM, SOME INFORMATION MAY BE OMITTED. This clinical summary was aggregated from multiple sources. Caution should be exercised in using it in the provision of clinical care. This summary normalizes information from multiple sources, and as a consequence, information in this document may materially change the coding, format and clinical context of patient data. In addition, data may be omitted in some cases. CLINICAL DECISIONS SHOULD BE BASED ON THE PRIMARY CLINICAL RECORDS. [facility]. provides no warranty or guarantee of the accuracy or completeness of information in this document.
[2025-01-05 09:15] LABS: Hematocrit 41.8 % (37-47); Hemoglobin 14.2 g/dL (12.0-15.0); Mean Corp Hgb Conc 34.0 g/dL (32-36); Mean Corpuscular Volume 88.7 fL (81-99); Mean Platelet Vol. 9.4 fl (6.2-12.0); Platelet Count 235 K/mm3 (150-450); RBC Distribution Width CV 11.9 % (11.6-14.6); RBC Distribution Width SD 39.4 fl (35.1-43.9); Red Blood Count 4.71 M/mm3 (4.2-5.4); White Blood Count 5.2 K/mm3 (4.4-11.0)
[2025-01-05 10:19] LABS: AST(SGOT) 21 U/L (<=31); Alanine Aminotransfer ALT/SGPT 16 U/L (<=34); Albumin, Serum 4.3 g/dL (3.4-4.8); Alkaline Phosphatase 77 U/L (35-104); Anion Gap 11 (5-15); BUN 15 mg/dL (4-19); BUN/Creat Ratio 16.7 RATIO (10-20); Calcium,Total 9.8 mg/dL (7.6-11.0); Carbon Dioxide 23.8 mmol/L (21.0-32.0); Chloride 104 mmol/L (98-108); Cholesterol 146 mg/dL (<=200); Free T3 3.4 pg/mL (2.18-3.98); Globulin 2.4 g/dL (2.2-4.2); Glucose 102 mg/dL (70-99); Low Density Lipoprotein Calc. 77 mg/dL; Potassium 4.2 mmol/L (3.3-5.1); Triglycerides 80 mg/dL; Very Low Density Lipoprotein 16 mg/dL (5-40); Vitamin D,25 Hydroxy 45.8 ng/mL (30-100); cholesterol:hdl ratio screen 2.74
== END | disposition home or self-care (01) ==
PROVIDERS: PCP Family Medicine; Referring Provider Family Medicine; Visit Provider Family Medicine
DX: Z00.00 Encounter for general adult medical examination without abnormal findings (principal); E03.9 Hypothyroidism, unspecified; E78.2 Mixed hyperlipidemia; G43.909 Migraine, unspecified, not intractable, without status migrainosus
CPT/HCPCS: 36415; 80053; 80061; 82306; 84439; 84443; 84481; 85027